=== PATIENT | female | born 1965 | race Hispanic/Latino ===

== ENCOUNTER 2024-11-30 16:45 | Inpatient (IN) | payer SELFPAY ==
[~2024-11-30] VITALS: Ht 152.4 cm; Wt 57.0 kg
[~2024-11-30 16:45] MED LIST: AMLO-257 PO; ASPI-1197 PO; ATOR40TA71 PO; CHOL500062 PO; CLOP-31 PO; FAMO20TA8 PO; FERS325 PO; FOLI0.8C PO; FOLI0.8T22 PO; HYDR50TA37 PO; INSU100I24 SQ; ISOS30TA92 PO; LACT-451 PO; LATA2.5D14 OS; METO-409 PO; PRED5TAB PO; SEVE0.8P PO; TACR1CAP23 PO; TACR5CAP17 PO
--- NOTE | 2024-11-30 17:08 | ERN ---
ED Note History of Present Illness Stated Complaint: dizziness Chief Complaint: Dizzy/Light Headed Time Seen by MD: 16:59 Dictation: PATIENT IS A 59-YEAR-OLD FEMALE COMING IN VIA EMS WITH COMPLAINTS OF HAVING FEELING WEAK WHILE SHE WAS AT HEMODIALYSIS, THE TECH WHO WAS GOING TO PERFORM THE DIALYSIS TOLD HER SHE WAS TOO WEAK TO GO THROUGH DIALYSIS AND CALLED EMS INSTEAD. SHE IS CURRENTLY COMPLAINING OF GENERALIZED HEADACHE HOWEVER NO CHEST PAIN NO BACK PAIN NO SOB. NO FEVER NO CHILLS. PATIENT HAS A LEFT ARM FISTULA WITH GOOD THRILL AND BRUIT PATIENT OF DR. TORREZ. LAST HEMODIALYSIS ONCE TUESDAY. Allergies: Coded Allergies: diphenhydramine (Unverified Allergy, Unknown, 08/19/24) Home Meds Reported Medications Latanoprost (Latanoprost) 0.005 % Drops, 1 DROP OS HS, ML 0 Refills 08/20/24 Tacrolimus (Astagraf Xl) 5 Mg Cap.er.24h, 5 MG PO DAILY, CAPSULE. 08/19/24 Folic Acid/Vitamin B Comp W-C (Michelle-Mack Tablet) 0.8 Mg Tablet, 1 MG PO DAILY, TAB 08/19/24 Ferrous Sulfate (Ferrous Sulfate) 325 Mg (65 Mg Iron) Ectab, 325 MG PO DAILY, TAB.EC 08/19/24 Cholecalciferol (Vitamin D3) (Vitamin D3) 125 Mcg (5000 Unit) Tab.rapdis, 125 MCG PO DAILY, TAB 08/19/24 Famotidine (Famotidine) 20 Mg Tablet, 20 MG PO DAILY, TAB 08/19/24 Hydralazine HCl (Hydralazine HCl) 50 Mg Tablet, 75 MG PO TID, TAB 08/19/24 Folic Acid (Folic Acid) 0.8 Mg Capsule, 1 MG PO DAILY, CAP 08/19/24 Clopidogrel Bisulfate (Plavix) 75 Mg Tablet, 75 MG PO DAILY, TAB 08/19/24 Atorvastatin Calcium (Atorvastatin Calcium) 40 Mg Tablet, 40 MG PO HS, TAB 08/19/24 Insulin Degludec (Tresiba Flextouch U-100) 100 Unit/Ml (3 Ml) Insuln.pen, 55 UNIT SQ HS, SYRINGE 08/19/24 Metoprolol Succinate (Metoprolol Succinate) 100 Mg Tab.er.24h, 100 MG PO DAILY, TAB 08/19/24 Sevelamer Carbonate (Renvela) 0.8 Gram Powd.pack, 0.8 GM PO TIDMEALS 08/19/24 Tacrolimus (Astagraf Xl) 1 Mg Cap.er.24h, 1 CAP PO DAILY for 30 Days, #30 CAP 0 Refills 08/19/24 Prednisone (Prednisone) 5 Mg Tablet, 5 MG PO DAILY, TAB 08/19/24 Amlodipine Besylate (Amlodipine Besylate) 5 Mg Tablet, 5 MG PO DAILY, TAB 08/19/24 Aspirin (Aspirin) 81 Mg Tab.chew, 81 MG PO DAILY, TAB.CHEW 08/19/24 Isosorbide Mononitrate (Isosorbide Mononitrate ER) 30 Mg Tab.er.24h, 30 MG PO DAILY, TAB 08/19/24 Lactulose (Lactulose) 10 Gram/15 Ml (15 Ml) Solution, 15 ML PO DAILY for constipation for 30 Days, #450 ML 0 Refills 08/19/24 Tacrolimus (Astagraf Xl) 1 Mg Cap.er.24h, 1 CAP PO DAILY 08/19/24 Past Medical History Past Medical History: Diabetes-Type II, Hypertension, Liver Disease, Renal Failure Additional Past Medical Hx: RENAL TRANSPLANT, CIRRHOSIS Surgical History: Other Surgical History Other: RENAL TRANSPLANT History: Not Applicable RN Note Reviewed/Agreed w/PFSH: Yes Review of System Dictation CONSTITUTIONAL: NEGATIVE EXCEPT FOR HPI GENERALIZED WEAKNESS HEAD/FACE: NEGATIVE EXCEPT FOR HPI EENT: NEGATIVE EXCEPT FOR HPI RESPIRATORY: NEGATIVE EXCEPT FOR HPI GASTROINTESTINAL/ABDOMINAL: NEGATIVE EXCEPT FOR HPI GENITOURINARY: NEGATIVE EXCEPT FOR HPI MUSCULOSKELETAL: NEGATIVE EXCEPT FOR HPI INTEGUMENTARY: NEGATIVE EXCEPT FOR HPI NEUROLOGICAL/PSYCH: NEGATIVE EXCEPT FOR HPI HEMATOLOGIC/LYMPHATIC: NEGATIVE EXCEPT FOR HPI ALL SYSTEMS NEGATIVE, EXCEPT NOTED ABOVE. 13 POINT REVIEW OF SYSTEMS ASSESSED AND ALL NEGATIVE EXCEPT FOR ABOVE. Initial Vital Sign VS Vital Signs Date Time Temp Pulse Resp B/P (MAP) Pulse Ox O2 Delivery O2 Flow Rate FiO2 11/30/24 17:17 39 16 96/39 92 Room Air 0 11/30/24 18:15 28 11/30/24 18:46 98.4 Physical Exam Dictation VITAL SIGNS REVIEWED GENERAL APPEARANCE: ALERT, ORIENTED X 3, NO ACUTE DISTRESS, WELL DEVELOPED, NOURISHED. HEAD AND FACE: NON-TRAUMATIC. EYES: PERRL, PINK CONJUNCTIVAS, EYELID NO TRAUMA, ANTERIOR CHAMBER WITH ARCUS SENILIS. EARS: PINNAS INTACT AND NO SIGNS OF TRAUMA OR ERYTHEMA EAR CANALS CLEAR AND NO DISCHARGE TM NO ERYTHEMA NOSE: NO DISCHARGE, NO BLEEDING. OROPHARYNX: MOUTH NORMAL, TONGUE PINK, PHARYNX CLEAR,NO ERYTHEMA, TONSILS NO EXUDATES, NO ABSCESSES NOTED, MUCOUS MEMBRANE MOIST NECK: SUPPLE, NON-TENDER, NO THYROMEGALY, NO MASSES, NO JVD, NO BRUITS BREAST:DEFERRED CHEST:NO TENDERNESS, NO CREPITUS, NO PARADOXICAL MOVEMENT, NO RETRACTIONS LUNGS:CLEAR, WELL-VENTILATED, SYMMETRIC, NO RALES, NO WHEEZING, NO RHONCHI, NO STRIDOR, GOOD BREATH SOUNDS BILATERALLY HEART: REGULAR RATE, REGULAR RHYTHM, NO MURMUR, NO GALLOPS VASCULAR: NO PERIPHERAL EDEMA, LEFT ARM FISTULA WITH GOOD THRILL AND BRUIT NOTED ABDOMEN: SOFT, POSITIVE BOWEL SOUNDS, NONDISTENDED, NO GUARDING, NONTENDER, NO REBOUND, NO MASSES NO HEPATOMEGALY, NO SPLENOMEGALY, NO JIMÉNEZ'S SIGN, NO HERNIAS. RECTAL: DEFERRED GENITAL: DEFERRED NEUROLOGICAL: NORMAL SPEECH, MOTOR FUNCTION INTACT, SENSORY FUNCTION INTACT NIH IS 0 MUSCULOSKELETAL: NECK NONTENDER, FULL RANGE OF MOTION, BACK NONTENDER, FULL RANGE OF MOTION, EXTREMITIES: NONTENDER, FULL RANGE OF MOTION SKIN: COLOR PINK, DRY, NO TURGOR, NO RASH, NO LACERATIONS, NO ABRASIONS, NO CONTUSIONS. LYMPHATIC: DEFERRED Results (Laboratory/Radiology) Laboratory/Radiology Laboratory Tests Test 11/30/24 17:14 White Blood Count 4.9 K/uL (4.8-10.8) Red Blood Count 3.30 MIL/uL (4.00-5.50) L Hemoglobin 10.1 g/dL (12.0-16.0) L Hematocrit 34.3 % (36-48) L Mean Corpuscular Volume 103.9 fL (79-99) H Mean Corpuscular Hemoglobin 30.6 pg (27.0-33.0) Mean Corpuscular Hemoglobin Concent 29.4 g/dL (32.0-36.0) L Red Cell Distribution Width 16.6 % (11.0-15.5) H Platelet Count 78 K/uL (130-400) L Mean Platelet Volume 10.2 fL (7.5-10.5) Immature Granulocyte % (Auto) 0.4 % (0-1) Neutrophils (%) (Auto) 49.4 % (40.0-77.0) Lymphocytes (%) (Auto) 25.5 % (21.0-51.0) Monocytes (%) (Auto) 10.3 % (3.0-13.0) Eosinophils (%) (Auto) 13.6 % (0.0-8.0) H Basophils (%) (Auto) 0.8 % (0.0-5.0) Neutrophils # (Auto) 2.4 K/uL (1.8-7.7) Lymphocytes # (Auto) 1.2 K/uL (1.0-4.8) Monocytes # (Auto) 0.5 K/uL (0.1-1.0) Eosinophils # (Auto) 0.66 K/uL (0.00-0.70) Basophils # (Auto) 0.04 K/uL (0.00-0.20) Absolute Immature Granulocyte (auto 0.02 K/uL (0-1) Nucleated Red Blood Cells 0.0 % (0.0-0.19) White Cell Morphology Comment See comments Red Blood Cell Morphology See comments Sodium Level 133 mmol/L (136-145) L Potassium Level 5.1 mmol/L (3.5-5.1) Chloride Level 98 mmol/L (101-111) L Carbon Dioxide Level 28 mmol/L (21-32) Blood Urea Nitrogen 51 mg/dL (7-18) H Creatinine 4.3 mg/dL (0.5-1.0) H Glomerular Filtration Rate Calc 11 mL/min (>90) Random Glucose 133 mg/dL (70-105) H Total Calcium 9.1 mg/dL (8.5-10.1) Troponin I High Sensitivity 31 ng/L (4-50) REASON: BREATH/CHEST PAIN ORDERING PHYSICIAN: ARNULFO WALDEN NP PROCEDURE: CXR1VW - CHEST 1VW PORTABLE CHEST RADIOGRAPH INDICATION: BREATH/CHEST PAIN COMPARISON: 08/19/2024 FINDINGS: panel monitor leads overlie the field of view. Mild calcific plaque is present along the aortic arch patel. Heart is enlarged. Coronary arterial wall calcific plaque. The pulmonary vascularity and marichuy appear normal. No abnormal pulmonary parenchymal opacity or consolidation identified. No significant pleural effusion noted. No pneumothorax detected. IMPRESSION: Stable cardiomegaly without radiographic evidence for any acute cardiopulmonary process. Labs Reviewed?: Yes EKG Comment: EKG SINUS BRADYCARDIA/HEART RATE 45/AXIS NORMAL/T-WAVE INVERSION IN LEADS V4 FIVE AND SIX. ED Course ED Course Orders Procedure Category Date Status Time Cbc With Differential LAB 11/30/24 Complete 17:05 Troponin I High LAB 11/30/24 Complete Sensitivity 17:05 12 Lead Ekg Tracing- EKG 11/30/24 Logged Technical 17:05 Chest 1vw RAD 11/30/24 Resulted 17:05 Basic Metabolic Panel LAB 11/30/24 Complete 17:05 Acetaminophen 500mg PHA 11/30/24 Complete Tab (Tylenol 500mg T 18:00 Atropine 1mg Syg PHA 11/30/24 Complete (Atropine 1mg Syg) 18:26 Atropine 1mg Syg PHA 11/30/24 Complete (Atropine 1mg Syg) 18:28 Atropine 1mg Syg PHA 11/30/24 Complete (Atropine 1mg Syg) 18:30 Dopamine Hcl 400 PHA 11/30/24 Complete Mg/D5%-Water (Intropin 18:30 Cardiology Consult CONPHYSVC 11/30/24 Transmitted 18:43 Atropine 1mg Syg PHA 11/30/24 Complete (Atropine 1mg Syg) 19:00 Critcal Care Consult CONPHYS 11/30/24 Transmitted 19:37 Vital Signs(Adult CPOE 11/30/24 Transmitted Hospitalist) 19:39 Oxygen By Nc/Pulse Ox CPOE 11/30/24 Transmitted 19:39 Daily Weights CPOE 11/30/24 Transmitted 19:39 I&O Q Shift CPOE 11/30/24 Transmitted 19:39 Acetaminophen 325 Tab PHA 11/30/24 In Process (Tylenol 325mg Tab 20:00 Acetaminophen 325 Tab PHA 11/30/24 In Process (Tylenol 325mg Tab 20:00 Ondansetron 4mg Inj PHA 11/30/24 In Process (Zofran 4mg Inj) 20:00 Ipratropium/Albuterol PHA 11/30/24 In Process Neb (Duoneb) 22:00 Pulse Ox(Continuous) RT 11/30/24 Transmitted 19:39 Nurse To Enter Home CPOE 11/30/24 Transmitted Medication 19:39 Admit Orders ADM 11/30/24 Transmitted 19:39 Condition: CPOE 11/30/24 Transmitted 19:39 Telemetry Monitoring CPOE 11/30/24 Transmitted 19:39 Activity: Bed Rest CPOE 11/30/24 Transmitted 19:39 Renal Dialysis Diet DIET 12/01/24 Transmitted Breakfast Apply Scds CPOE 11/30/24 Transmitted 19:39 Famotidine 20mg Tab PHA 11/30/24 In Process (Pepcid 20mg Tab) 20:00 Critcal Care Consult CONPHYSVC 11/30/24 Transmitted 19:39 Cardiology Consult CONPHYSVC 11/30/24 Transmitted 19:39 Cbc With Differential LAB 12/01/24 Verified 04:00 Comprehensive LAB 12/01/24 Verified Metabolic Panel 04:00 Magnesium LAB 12/01/24 Verified 04:00 Pt And Ptt LAB 12/01/24 Verified 04:00 Thyroid Stimulating LAB 12/01/24 Verified Hormone 04:00 Initiate RONAK 11/30/24 In Process Hyperglycemia Protoco 19:39 Insulin Regular, PHA 11/30/24 In Process Human 3ml (Humulin R 21:00 Initiate Hypoglycemia RONAK 11/30/24 In Process Protocol 19:39 Dextrose 50%-Water PHA 11/30/24 In Process (D50w) 20:00 Glucagon 1mg Kit PHA 11/30/24 In Process (Glucagon 1mg Kit) 20:00 Nephrology Consult CONPHYSVC 11/30/24 Transmitted 20:37 Vital Signs Date Time Temp Pulse Resp B/P (MAP) Pulse Ox O2 Delivery O2 Flow Rate FiO2 11/30/24 20:04 52 20 141/43 97 Nasal Cannula* 2 28 11/30/24 19:15 78 20 184/75 97 Nasal Cannula* 2 11/30/24 19:09 100/44 11/30/24 18:46 98.4 47 47 121/47 100 Nasal Cannula* 2 28 11/30/24 18:15 33 20 91/34 98 Nasal Cannula* 2 28 11/30/24 17:17 39 16 96/39 92 Room Air 0 1800/ELECTROLYTES ARE UNREMARKABLE WITH POTASSIUM IS CONTROLLED PATIENT IS HEMODYNAMICALLY STABLE NO CHEST PAIN NO BACK PAIN NO SOB CHEST X-RAY IS CLEAR FOLLOW UP WITH NEPHROLOGISTS FOR PATIENT TO HAVE OUTPATIENT DIALYSIS TOMORROW. 1830/PATIENT IS A SINUS BRADYCARDIA HEART RATE 29TH OF 35 MINUTE. PATIENT IS BORDERLINE HYPOTENSIVE WE WILL FOLLOW UP WITH ATROPINE, AND INITIATE DOPAMINE DRIP FOR BLOOD PRESSURE AND HEART RATE. CONSULT CARDIOLOGY AND HAVE PATIENT ADMITTED TO THE HOSPITAL AND [id number]/ 183/HEART RATE NOW 51-50 TO A MIN SYSTOLIC BP 1 20S. PATIENT MORE ALERT. WE WILL FOLLOW UP WITH HER ADVERTISING ACCOUNT REPRESENTATIVE, FOR CONSULTATION AND HAVE PLACED IN ADMITTED TO ICU. 1839/SPOKE WITH REVIEWED EKG LABS AND PATIENT'S MEDICATIONS HE AGREED TO ADMIT PATIENT AND WOULD SEE HER IN THE HOSPITAL. 1931/SPOKE WITH CHANTEL JEFFRIES FOR [facility] AND CRITICAL CARE GROUP. REVIEWED LABS EKG AND INTERVENTIONS TO INCLUDE ATROPINE AND DOPAMINE. HE AGREED TO HAVE [facility] CONSULTED FOR CRITICAL CARE MANAGEMENT PATIENT WILL BE ADMITTED TO THE HOSPITALIST GROUP. 2104/SPOKE WITH [facility] HOSPITALIST AND SHE AGREED TO ADMIT PATIENT Medical Decision Making MDM MDM: DIFFERENTIAL DIAGNOSIS: SYMPTOMATIC BRADYCARDIA/ELECTROLYTE IMBALANCE/DEHYDRATION/ACS RATIONALE: TESTS CONSIDERED AND ORDERED SECONDARY TO SHARED DECISION MAKING INCLUDE: LABS, ECG AND RADIOLOGY PREVIOUS OUTSIDE RECORDS REVIEWED: OLD ER VISITS. RISK OF COMPLICATION AND/OR MORBIDITY OR MORTALITY OF PATIENT MANAGEMENT: NONE MEDICATIONS-PER MEDICATION RECONCILIATION NEED FOR HOSPITALIZATION: PATIENT DOES MEET CRITERIA FOR HOSPITALIZATION. PATIENT WILL BE ADMITTED TO ICU WITH DOPAMINE, WE WILL NEED PROBABLE PACEMAKER AND CARDIOLOGY CONSULTATION. NEED FOR EMERGENCY MAJOR/MINOR SURGERY: PROBABLE PACEMAKER THERE ARE NO SOCIAL CONCERNS WITH THIS PATIENT. PRESCRIPTION DRUG MANAGEMENT PRESCRIPTIONS WILL INCLUDE SYMPTOMATIC CARE PATIENT'S PRIOR EXTERNAL MEDICAL RECORDS FROM OTHER ER VISITS WERE REVIEWED BY ME INDICATED. PRIOR TESTING AND RESULTS FROM PREVIOUS VISITS WERE REVIEWED. PRIOR TESTS WERE TAKEN INTO ACCOUNT WITH MEDICAL DECISION MAKING AND RESOURCE UTILIZATION, INDEPENDENT HISTORIAN/HISTORIANS WERE USED TO OBTAIN COMPLETE MEDICAL HISTORY. I INDEPENDENTLY INTERPRETED THE TEST THAT WERE PERFORMED, RESULTS WERE REVIEWED BY ME AND CONSIDERED FINDINGS ON RADIOLOGY IF ORDERED. MEDICAL MANAGEMENT AND EXAMINATION INTERPRETATION DISCUSSIONS WERE HAD BY ME WITH OTHER QUALIFIED HEALTHCARE PROFESSIONALS INDICATED FOR THE PATIENT'S CARE. DX & DISP Disposition: Inpatient Decision to Admit Time: 18:38 Departure Impression: Primary Impression: Symptomatic bradycardia Additional Impressions: Hypotension, Hyponatremia, Anemia of chronic kidney failure Condition: Stable Referrals: MIROSLAVA TORREZ (PCP) Time of Disposition: 19:40 I have reviewed the case, and I agree with, Diagnosis and Plan ARNULFO WALDEN LEAD RIDER Nov 30, 2024 17:08
[2024-11-30 17:20] LABS: BASOPHILS # (AUTO) 0.04 K/uL (0.00-0.20); BASOPHILS % (AUTO) 0.8 % (0.0-5.0); EOSINOPHILS # (AUTO) 0.66 K/uL (0.00-0.70); EOSINOPHILS % (AUTO) 13.6 % (0.0-8.0); HEMATOCRIT 34.3 % (36-48); IMMATURE GRANULOCYTE ABSOLUTE 0.02 K/uL (0-1); LYMPHOCYTES # (AUTO) 1.2 K/uL (1.0-4.8); LYMPHOCYTES % (AUTO) 25.5 % (21.0-51.0); MEAN CORPUSCULAR HEMOGLOBIN 30.6 pg (27.0-33.0); MEAN CORPUSCULAR HGB CONC 29.4 g/dL (32.0-36.0); MEAN CORPUSCULAR VOLUME 103.9 fL (79-99); MONOCYTES # (AUTO) 0.5 K/uL (0.1-1.0); MONOCYTES % (AUTO) 10.3 % (3.0-13.0); NEUTROPHILS # (AUTO) 2.4 K/uL (1.8-7.7); NEUTROPHILS % (AUTO) 49.4 % (40.0-77.0); PLATELET COUNT (AUTO) 78 K/uL (130-400); RED CELL DISTRIBUTION WIDTH 16.6 % (11.0-15.5); WHITE BLOOD COUNT (AUTO) 4.9 K/uL (4.8-10.8)
--- NOTE | 2024-11-30 17:20 | NUR ---
DIALYSIS PT AND GETS DIALYSIS MWF. UNABLE TO GET DIALYSIS TODAY DUE TO FEELING WEAK. PT WAS PICKED UP AT DIALYSIS CENTER BY EMS AND EMS REPORTS THEY WERE CALLED OUT FOR PT C/O GENERAL MALAISE AND BRADYCARDIA.
[2024-11-30 17:30] LABS: CREATININE 4.3 mg/dL (0.5-1.0); POTASSIUM 5.1 mmol/L (3.5-5.1)
--- NOTE | 2024-11-30 17:45 | HMCIMG ---
PORTABLE CHEST RADIOGRAPH INDICATION: BREATH/CHEST PAIN COMPARISON: 08/19/2024 FINDINGS: cafeteria monitor leads overlie the field of view. Mild calcific plaque is present along the aortic arch patel. Heart is enlarged. Coronary arterial wall calcific plaque. The pulmonary vascularity and marichuy appear normal. No abnormal pulmonary parenchymal opacity or consolidation identified. No significant pleural effusion noted. No pneumothorax detected. IMPRESSION: Stable cardiomegaly without radiographic evidence for any acute cardiopulmonary process.
--- NOTE | 2024-11-30 18:25 | NUR ---
ATROPINE 1MG ADM VIA IV RT WRIST
[2024-11-30] MEDS ORDERED: ATROPINE 1MG SYG IVP SCH (18:30)
[2024-11-30] MEDS: ATROPINE 1MG SYG IVP ONE ×3 (19:07→19:08)
[2024-11-30] MEDS: DOPamine HCL 400 MG/D5%-WATER 250 ML IV STA (19:09)
[2024-11-30] MEDS: acetaMINOPHEN 500 MG TABLET PO ONE (19:35)
--- NOTE | 2024-11-30 19:38 | HP ---
[facility] HISTORY AND PHYSICAL Date of Service: Nov 30, 2024 Time of Service: 19:38 PCP: Lilly Jorgensen HISTORY OF PRESENT ILLNESS: This is a 59 year old female Syriac speaking with past medical history of Hypertension, hyperlipidemia, end-stage renal disease on hemodialysis MWF , liver cirrhosis, renal transplant which has failed, diabetic retinopathy with loss of vision of the right eye, coronary artery disease who was brought by EMS to the ED from hemodialysis center for complaints of feeling weak and low BP a nd her HR was in the 30's ,thus prompted this admission.Patient states she was not hemodialyzed today for above reasons.Patient states she is taking Metoprolol 100mg po daily and last dose taken was yesterday night.Patient states she has been weak and feeling tired for the past few days and her BP has been low for the pas 1 week she said patient reports her librarian assistant was . Seen and examined patient in the ED awake,alert and coherent.Patient appears comfortable.Patient denies fever,chills,nausea,vomiting,headache ,chest pain and palpitation.Patient reports feeling dizzy and mild shortness of breaths. Latest vital signs temperature 98.4, heart rate 52, respiration 20, blood pressure 141/43 saturation 97% on 2 L nasal cannula. Labs: Hemoglobin 10, hematocrit 34, platelet count 78 . Sodium 133, chloride 98, BUN 51, creatinine 4.3, GFR 11 glucose 133, troponin 31. ECG result revealed sinus bradycardia heart rate 45 with nonspecific T abnormalities diffuse leads. Chest x-ray result revealed stable cardiomegaly without radiographic evidence for any acute cardiopulmonary process. While in the ER patient received atropine 1 mg IV, patient started on dopamine, acetaminophen 1000 mg p.o. as per ER MDDr. Grande librarian assistant was consulted. We will admit patient for further medical management. REVIEW OF SYSTEMS CONSTITUTIONAL: Denies fevers, chills, or night sweats. No unintentional weight loss reported. NEUROLOGICAL: Complain of generalized body weakness, dizziness Denies headache, amaurosis fugax, sensory deficit, gait abnormalities, or tremors. ENT: No hearing loss, otalgia, otorrhea, rhinitis, rhinorrhea, hoarseness, or sore throat. CARDIOVASCULAR: Denies any exertional angina, dyspnea on exertion, orthopnea, paroxysmal nocturnal dyspnea, palpitations, life-threatening arrhythmias, claudication. PULMONARY: Complain of mild shortness of breaths Denies cough, phlegm/sputum, hemoptysis, pleuritic chest pain. SLEEP: Denies morning headaches, daytime somnolence or napping. Denies difficulty falling asleep, staying asleep, waking from sleep. Denies knowledge of snoring. GASTROINTESTINAL: Denies any type of dysphagia to either liquids or solids. Denies nausea, vomiting, pyrosis, early satiety, abdominal pain, diarrhea, constipation, or changes in stool consistency or caliber. Denies coffee-ground emesis, hematemesis, hematochezia, or melanotic stools. GENITOURINARY: Denies frequency, urgency, nocturia, hematuria or incontinence (Storage/Irritative symptoms.) Low urinary stream, straining to void, urinary intermittency or hesitancy, splitting of the voiding stream, terminal dribbling. ENDOCRINOLOGIC: Denies polyuria, polydipsia, polyphagia or heat/cold intolerances. HEMATOLOGIC: Denies thrombophilia/previous clots, or coagulopathy/bleeding disorders. ONCOLOGIC: Denies personal history of malignancy. DERMATOLOGIC: Denies rashes or pruritus. PSYCHIATRIC: Denies any suicidal or homicidal ideation. Denies hallucinations. PAST MEDICAL HISTORY: [ Hypertension, hyperlipidemia, end-stage renal disease on hemodialysis, liver cirrhosis, renal transplant which has failed, diabetic retinopathy with loss of vision of the right eye, coronary artery disease ] PAST SURGICAL HISTORY: [Lava, cholecystectomy, renal transplantation ] PAST SOCIAL HISTORY: [ Day when you come patient lives alone. Patient denies alcohol tobacco and recreational drug use] FAMILY HISTORY: [Hypertension and diabetes ] Coded Allergies: diphenhydramine (Unverified Allergy, Unknown, 08/19/24) PHYSICAL EXAM GENERAL APPEARANCE: The patient is awake, alert, and oriented, in no acute cardiopulmonary distress. NEUROLOGICAL: Cranial nerves II-XII grossly intact. Motor is 5/5 in bilateral upper and lower extremities proximal to distal. No sensory deficits. HEENT: Face is symmetric. Pupils are equal and reactive. Extraocular movements are intact. NECK: Supple. No JVD. No thyromegaly. No submental, submandibular, pre- /postauricular, occipital or supraclavicular lymphadenopathy. CHEST: Normal chest expansion. + Telemetry. LUNGS: Absence of any rales, rhonchi or any wheezing. CARDIOVASCULAR: Bradycardic Regular. S1 and S2 normal. No appreciable rubs, murmurs or gallops. ABDOMEN: Soft, nontender, and nondistended. There is no rebound, voluntary guarding, or rigidity. : Deferred. No Prieto. EXTREMITIES: Non-edematous and not cyanotic. No clubbing. Good capillary refill. SKIN: No skin breakdown. Vital Sign (Last 24 Hours) 11/30/24 11/30/24 18:46 19:09 Temp 98.4 Pulse 47 Resp 47 B/P (MAP) 100/44 Pulse Ox 100 O2 Delivery Nasal Cannula* O2 Flow Rate 2 FiO2 28 LABS: Laboratory: Test 11/30/24 17:14 Range/Units White Blood Count 4.9 4.8-10.8 K/uL Red Blood Count 3.30 L 4.00-5.50 MIL/uL Hemoglobin 10.1 L 12.0-16.0 g/dL Hematocrit 34.3 L 36-48 % Mean Corpuscular Volume 103.9 H 79-99 fL Mean Corpuscular Hemoglobin 30.6 27.0-33.0 pg Mean Corpuscular Hemoglobin Concent 29.4 L 32.0-36.0 g/dL Red Cell Distribution Width 16.6 H 11.0-15.5 % Platelet Count 78 L 130-400 K/uL Mean Platelet Volume 10.2 7.5-10.5 fL Immature Granulocyte % (Auto) 0.4 0-1 % Neutrophils (%) (Auto) 49.4 40.0-77.0 % Lymphocytes (%) (Auto) 25.5 21.0-51.0 % Monocytes (%) (Auto) 10.3 3.0-13.0 % Eosinophils (%) (Auto) 13.6 H 0.0-8.0 % Basophils (%) (Auto) 0.8 0.0-5.0 % Neutrophils # (Auto) 2.4 1.8-7.7 K/uL Lymphocytes # (Auto) 1.2 1.0-4.8 K/uL Monocytes # (Auto) 0.5 0.1-1.0 K/uL Eosinophils # (Auto) 0.66 0.00-0.70 K/uL Basophils # (Auto) 0.04 0.00-0.20 K/uL Absolute Immature Granulocyte (auto 0.02 0-1 K/uL Nucleated Red Blood Cells 0.0 0.0-0.19 % White Cell Morphology Comment See comments Red Blood Cell Morphology See comments Sodium Level 133 L 136-145 mmol/L Potassium Level 5.1 3.5-5.1 mmol/L Chloride Level 98 L 101-111 mmol/L Carbon Dioxide Level 28 21-32 mmol/L Blood Urea Nitrogen 51 H 7-18 mg/dL Creatinine 4.3 H 0.5-1.0 mg/dL Glomerular Filtration Rate Calc 11 >90 mL/min Random Glucose 133 H 70-105 mg/dL Total Calcium 9.1 8.5-10.1 mg/dL Troponin I High Sensitivity 31 4-50 ng/L Current Medications Medications (Trade) Dose Ordered Sig/Zay Route PRN Reason Start Time Stop Time Status Last Admin Dose Admin Atropine Sulfate (Atropine 1mg Syg) 1 mg ONCE IVP 11/30/24 18:30 11/30/24 18:32 DC Dopamine HCl/ Dextrose 250 ml @ 0 mls/hr PROTOCOL STAT IV 11/30/24 18:30 11/30/24 18:35 DC 11/30/24 19:09 13 MLS/HR DIAGNOSTICS / RADIOLOGY: [ ] ASSESSMENT: Symptomatic bradycardia POA Acute respiratory failure with out mechanical ventilation POA Acute anemia POA Acute thrombocytopenia POA Acute on chronic renal failure on hemodialysis POA Diabetes POA Hyperlipidemia POA Hypertension POA PLAN: We will admit patient in ICU We will start on renal dialysis diet We will continue dopamine drip We will start on Famotidine 20 mg p.o. q.48h for GI prophylaxis We will start on insulin sliding scale AC & HS with hypoglycemia protocol We will add prn medication for fever,pain,cough and nausea We will reconcile home meds once medlist available We will request labs in am We will seek critical care consultation We will seek Nephrology consultation Cardiology consulted per ER and follow recommendation Further orders to follow depending on above results Case discussed with attending physician and came up with above treatment and plan of care. ADVANCED CARE PLANNING 1. Which of the following were discussed? Hospice Care - No Therapeutic options - Yes Advance Directives - No Other discussions - 2. Discussed with who? Patient and sister Terrie Brown 3. Voluntary nature of this service was explained to the patient? Yes 4. Amount of time spent - ___28 min____ 5. Reviewed by Physician? (if this service was performed by NPP) Yes Patient seen and examined by me. Agree with note by MATERNAL CHILD NURSE SEE ADDITIONAL ORDERS PER CHART DISCUSSED WITH NURSING STAFF KOFFI GOZNALEZ [employer] SUPERINTENDENT Nov 30, 2024 19:38
[2024-11-30] MEDS: FAMOTIDINE 20MG TAB PO SCH (19:57)
[2024-11-30] MEDS ORDERED: GLUCAGON 1MG KIT 1 MG ML IM PRN (20:00)
[2024-11-30] MEDS ORDERED: ondanSETRON 4MG INJ IV PRN (20:00)
[2024-11-30] MEDS: INSULIN humuLIN R 100 UNIT/ML 3ML SQ SCH (21:00)
[2024-11-30 21:17] VITALS: PULSE 46; RESP 18; O2SAT 92
[2024-11-30 21:18] VITALS: PULSE 48; RESP 20
[2024-11-30] MEDS: IpraTROPium/alBUTERol SULFATE 3 ML SOLUTION IH SCH (21:18)
[2024-12-01] VITALS (53 sets, daily range): BP systolic 135–180; BP diastolic 48–128; PULSE 53–107; RESP 13–53; TEMP 96.5–98.9; O2SAT 96–99
--- NOTE | 2024-12-01 00:51 | CONS ---
[facility] CONSULTATION NOTE Date Patient Seen: Nov 30, 2024 Time of Visit: 2100 Supervising Physician: [Dr. Stanley Farrell ] Reason for Consultation: Critical care management ] Primary Care Physician: [ Dr. Jameel Carr] Outpatient Specialists: [Dr. Singhnephkris, Dr. Hopper-cardiology] Inpatient Consults: [ Dr. Roach, Dr. Grande-cardiology] PROBLEM LIST: Severe symptomatic bradycardia requiring Dopamine drip-POA Symptomatic hypotension-POA Missed dialysis due to symptomatic hypotension-POA ESRD-HD MWF Primary HTN Prior renal transplant with failure Anemia of chronic disease Thrombocytopenia Liver cirrhosis PLAN: -Continue critical care management -Continue Dopamine drip titrate as per protocol -Obtain 2d-echo in am -Cardiology, Dr. Grande consulted by ED PA -Consult Dr. Siu for HD management -Daily weight -Strict I&O -The rest of medical management per primary team HPI: [Per Hospitalist notes: "This is a 59 year old female Slovak speaking with past medical history of Hypertension, hyperlipidemia, end-stage renal disease on hemodialysis MWF , liver cirrhosis, renal transplant which has failed, diabetic retinopathy with loss of vision of the right eye, coronary artery disease who was brought by EMS to the ED from hemodialysis center for complaints of feeling weak and low BP a nd her HR was in the 30's ,thus prompted this admission.Patient states she was not hemodialyzed today for above reasons.Patient states she is taking Metoprolol 100mg po daily and last dose taken was yesterday night.Patient states she has been weak and feeling tired for the past few days and her BP has been low for the pas 1 week she said patient reports her front desk administrator was . Seen and examined patient in the ED awake,alert and coherent.Patient appears comfortable.Patient denies fever,chills,nausea,vomiting,headache ,chest pain and palpitation.Patient reports feeling dizzy and mild shortness of breaths. Latest vital signs temperature 98.4, heart rate 52, respiration 20, blood pressure 141/43 saturation 97% on 2 L nasal cannula. Labs: Hemoglobin 10, hematocrit 34, platelet count 78 . Sodium 133, chloride 98, BUN 51, creatinine 4.3, GFR 11 glucose 133, troponin 31. ECG result revealed sinus bradycardia heart rate 45 with nonspecific T abnormalities diffuse leads. Chest x-ray result revealed stable cardiomegaly without radiographic evidence for any acute cardiopulmonary process. While in the ER patient received atropine 1 mg IV, patient started on dopamine, acetaminophen 1000 mg p.o. as per ER MD, Dr. Grande front desk administrator was consulted. We will admit patient for further medical management." [facility] team was consulted for ICU management in the setting of Dopamine drip. Physical assessment was unrevealing without focal neurologic deficits. She complains of headache. Bedside RN Gurinder served as solar system designer, apparently patient has been having low BP for the past 2 weeks, she had stopped taking all her BP meds. She was not able to accompalish her dialysis today due to hypotension. SHe is currently receiving Dopamine drip and RN claims she was having challenges titrating due to BP would suddenly shoot-up and patient complaining of a headache. She is currently at 2 mcg/kg/min. ] PAST MEDICAL HX: see above PAST SURGICAL HX: noncontributory SOCIAL HISTORY: No tobacco, ETOH, or illicit drug use Coded Allergies: diphenhydramine (Unverified Allergy, Unknown, 08/19/24) REVIEW OF SYSTEMS: 12 point ROS reviewed with patient. Pertinent positives mentioned above. Otherwise negative. PHYSICAL EXAM: GENERAL: alert, weak, awake oriented x 3 HEENT: EOMI, Sclera non icteric, moist mucosa NECK: Supple, no JVD, trachea midline LUNGS: Clear breath sounds bilaterally. No wheezes HEART: Regular rate and rhythm. Normal S1 and S2, without murmurs ABD: Abdomen soft, nontender. Bowel sounds present EXT: No clubbing cyanosis or edema, LAVA (+) thrill and bruit NEURO: Alert and oriented to person, follows commands Vital Signs (last 8hr) Date Time Temp Pulse Resp B/P (MAP) Pulse Ox O2 Delivery O2 Flow Rate FiO2 11/30/24 22:51 49 20 155/58 99 Nasal Cannula* 2 28 11/30/24 21:41 130/71 11/30/24 21:34 48 20 119/54 97 Nasal Cannula* 2 11/30/24 21:17 46 18 N/Cannula Low lpm 2.0 11/30/24 20:04 52 20 141/43 97 Nasal Cannula* 2 28 11/30/24 19:15 78 20 184/75 97 Nasal Cannula* 2 28 11/30/24 19:09 100/44 11/30/24 18:46 98.4 47 47 121/47 100 Nasal Cannula* 2 28 11/30/24 18:15 33 20 91/34 98 Nasal Cannula* 2 28 11/30/24 17:17 39 16 96/39 92 Room Air 0 LABS: Hematology Labs: Test 11/30/24 17:14 Range/Units White Blood Count 4.9 4.8-10.8 K/uL Red Blood Count 3.30 L 4.00-5.50 MIL/uL Hemoglobin 10.1 L 12.0-16.0 g/dL Hematocrit 34.3 L 36-48 % Mean Corpuscular Volume 103.9 H 79-99 fL Mean Corpuscular Hemoglobin 30.6 27.0-33.0 pg Mean Corpuscular Hemoglobin Concent 29.4 L 32.0-36.0 g/dL Red Cell Distribution Width 16.6 H 11.0-15.5 % Platelet Count 78 L 130-400 K/uL Mean Platelet Volume 10.2 7.5-10.5 fL Immature Granulocyte % (Auto) 0.4 0-1 % Neutrophils (%) (Auto) 49.4 40.0-77.0 % Lymphocytes (%) (Auto) 25.5 21.0-51.0 % Monocytes (%) (Auto) 10.3 3.0-13.0 % Eosinophils (%) (Auto) 13.6 H 0.0-8.0 % Basophils (%) (Auto) 0.8 0.0-5.0 % Neutrophils # (Auto) 2.4 1.8-7.7 K/uL Lymphocytes # (Auto) 1.2 1.0-4.8 K/uL Monocytes # (Auto) 0.5 0.1-1.0 K/uL Eosinophils # (Auto) 0.66 0.00-0.70 K/uL Basophils # (Auto) 0.04 0.00-0.20 K/uL Absolute Immature Granulocyte (auto 0.02 0-1 K/uL Nucleated Red Blood Cells 0.0 0.0-0.19 % White Cell Morphology Comment See comments Red Blood Cell Morphology See comments Chemistry Labs: Test 11/30/24 21:36 11/30/24 17:14 Range/Units Whole Blood Glucose 136 H 70-110 MG/DL Sodium Level 133 L 136-145 mmol/L Potassium Level 5.1 3.5-5.1 mmol/L Chloride Level 98 L 101-111 mmol/L Carbon Dioxide Level 28 21-32 mmol/L Blood Urea Nitrogen 51 H 7-18 mg/dL Creatinine 4.3 H 0.5-1.0 mg/dL Glomerular Filtration Rate Calc 11 >90 mL/min Random Glucose 133 H 70-105 mg/dL Total Calcium 9.1 8.5-10.1 mg/dL Troponin I High Sensitivity 31 4-50 ng/L DIAGNOSTICS / RADIOLOGY RESULTS: [ ] PLAN NEURO: Minimize central acting medications as possible. Maintain fall precautions, adequate lighting during the day PULMONARY: Supplemental 02 as needed. Maintain aspiration precautions at all times CARDIOVASCULAR: Follow hemodynamics. Vital signs per facility protocol GI & NUTRITION: Continue with nutritional support. Continue stool softeners and laxatives as needed. KIDNEYS & ELECTROLYTES: Strict monitoring of intake, output and overall fluid balance. Avoid nephrotoxic medications to the extent possible. Medications to be dosed according to renal function. Monitor electrolytes and replace as needed ENDOCRINE: Maintain blood glucose between 100-180 at all times. Hypoglycemia protocol in place INFECTIOUS DISEASE: Trend temperature, WBC and procalcitonin level Follow cultures, deescalate antibiotics as soon as possible. Panculture if new onset fever ONCOLOGY/HEMATOLOGY/COAGULATION: Monitor for s/s of bleeding Monitor hemoglobin, coagulation studies as needed SKIN: Pressure ulcer prevention per facility protocol Specialty mattress ORTHO/REHAB: Continue PT/OT Prophylaxis: Continue GI and DVT prophylaxis Code Status: Full Resuscitation Disposition: TBD Other: Total patient care time: 35 minutes CHANTEL CYR Dec 01, 2024 00:51
--- NOTE | 2024-12-01 06:34 | PN ---
[facility] PROGRESS NOTE Date of Service: Dec 01, 2024 Time of Service: 06:32 SUBJECTIVE: [ ] This is a 59 year old female Romanian speaking with past medical history of Hypertension, hyperlipidemia, end-stage renal disease on hemodialysis MWF , liver cirrhosis, renal transplant which has failed, diabetic retinopathy with loss of vision of the right eye, coronary artery disease who was brought by EMS to the ED from hemodialysis center for complaints of feeling weak and low BP a nd her HR was in the 30's ,thus prompted this admission.Patient states she was not hemodialyzed today for above reasons.Patient states she is taking Metoprolol 100mg po daily and last dose taken was yesterday night.Patient states she has been weak and feeling tired for the past few days and her BP has been low for the pas 1 week she said patient reports her account support rep was . 12/01/24 patient was seen in ICU was evaluated by account support rep's reviewed note in detail bradycardia resolved started patient on low dose metoprolol with para meters. Patient denied chest pain or shortness for breath. REVIEW OF SYSTEMS CONSTITUTIONAL: Denies fevers, chills, or night sweats. No unintentional weight loss reported. NEUROLOGICAL: Complain of generalized body weakness, dizziness Denies headache, amaurosis fugax, sensory deficit, gait abnormalities, or tremors. ENT: No hearing loss, otalgia, otorrhea, rhinitis, rhinorrhea, hoarseness, or sore throat. CARDIOVASCULAR: Denies any exertional angina, dyspnea on exertion, orthopnea, paroxysmal nocturnal dyspnea, palpitations, life-threatening arrhythmias, claudication. PULMONARY: Complain of mild shortness of breaths Denies cough, phlegm/sputum, hemoptysis, pleuritic chest pain. SLEEP: Denies morning headaches, daytime somnolence or napping. Denies difficulty falling asleep, staying asleep, waking from sleep. Denies knowledge of snoring. GASTROINTESTINAL: Denies any type of dysphagia to either liquids or solids. Denies nausea, vomiting, pyrosis, early satiety, abdominal pain, diarrhea, constipation, or changes in stool consistency or caliber. Denies coffee-ground emesis, hematemesis, hematochezia, or melanotic stools. GENITOURINARY: Denies frequency, urgency, nocturia, hematuria or incontinence (Storage/Irritative symptoms.) Low urinary stream, straining to void, urinary intermittency or hesitancy, splitting of the voiding stream, terminal dribbling. ENDOCRINOLOGIC: Denies polyuria, polydipsia, polyphagia or heat/cold intolerances. HEMATOLOGIC: Denies thrombophilia/previous clots, or coagulopathy/bleeding disorders. ONCOLOGIC: Denies personal history of malignancy. DERMATOLOGIC: Denies rashes or pruritus. PSYCHIATRIC: Denies any suicidal or homicidal ideation. Denies hallucinations. PHYSICAL EXAM GENERAL APPEARANCE: The patient is awake, alert, and oriented, in no acute cardiopulmonary distress. NEUROLOGICAL: Cranial nerves II-XII grossly intact. Motor is 5/5 in bilateral upper and lower extremities proximal to distal. No sensory deficits. HEENT: Face is symmetric. Pupils are equal and reactive. Extraocular movements are intact. NECK: Supple. No JVD. No thyromegaly. No submental, submandibular, pre- /postauricular, occipital or supraclavicular lymphadenopathy. CHEST: Normal chest expansion. + Telemetry. LUNGS: Absence of any rales, rhonchi or any wheezing. CARDIOVASCULAR: Bradycardic Regular. S1 and S2 normal. No appreciable rubs, murmurs or gallops. ABDOMEN: Soft, nontender, and nondistended. There is no rebound, voluntary gua rding, or rigidity. : Deferred. No Prieto. EXTREMITIES: Non-edematous and not cyanotic. No clubbing. Good capillary refill. SKIN: No skin breakdown. Vital Signs (last 8hr) Date Time Temp Pulse Resp B/P (MAP) Pulse Ox O2 Delivery O2 Flow Rate FiO2 12/01/24 06:27 57 18 169/65 98 Nasal Cannula* 2 12/01/24 04:31 62 18 159/53 98 Nasal Cannula* 2 28 12/01/24 03:25 65 18 164/67 98 Nasal Cannula* 2 12/01/24 02:10 54 18 168/53 98 Nasal Cannula* 2 12/01/24 01:53 53 20 12/01/24 01:20 62 20 164/78 99 Nasal Cannula* 2 11/30/24 23:54 55 20 152/57 99 Nasal Cannula* 2 11/30/24 22:51 49 20 155/58 99 Nasal Cannula* 2 LABS: Laboratory: Test 11/30/24 21:36 11/30/24 17:14 Range/Units Whole Blood Glucose 136 H 70-110 MG/DL White Blood Count 4.9 4.8-10.8 K/uL Red Blood Count 3.30 L 4.00-5.50 MIL/uL Hemoglobin 10.1 L 12.0-16.0 g/dL Hematocrit 34.3 L 36-48 % Mean Corpuscular Volume 103.9 H 79-99 fL Mean Corpuscular Hemoglobin 30.6 27.0-33.0 pg Mean Corpuscular Hemoglobin Concent 29.4 L 32.0-36.0 g/dL Red Cell Distribution Width 16.6 H 11.0-15.5 % Platelet Count 78 L 130-400 K/uL Mean Platelet Volume 10.2 7.5-10.5 fL Immature Granulocyte % (Auto) 0.4 0-1 % Neutrophils (%) (Auto) 49.4 40.0-77.0 % Lymphocytes (%) (Auto) 25.5 21.0-51.0 % Monocytes (%) (Auto) 10.3 3.0-13.0 % Eosinophils (%) (Auto) 13.6 H 0.0-8.0 % Basophils (%) (Auto) 0.8 0.0-5.0 % Neutrophils # (Auto) 2.4 1.8-7.7 K/uL Lymphocytes # (Auto) 1.2 1.0-4.8 K/uL Monocytes # (Auto) 0.5 0.1-1.0 K/uL Eosinophils # (Auto) 0.66 0.00-0.70 K/uL Basophils # (Auto) 0.04 0.00-0.20 K/uL Absolute Immature Granulocyte (auto 0.02 0-1 K/uL Nucleated Red Blood Cells 0.0 0.0-0.19 % White Cell Morphology Comment See comments Red Blood Cell Morphology See comments Sodium Level 133 L 136-145 mmol/L Potassium Level 5.1 3.5-5.1 mmol/L Chloride Level 98 L 101-111 mmol/L Carbon Dioxide Level 28 21-32 mmol/L Blood Urea Nitrogen 51 H 7-18 mg/dL Creatinine 4.3 H 0.5-1.0 mg/dL Glomerular Filtration Rate Calc 11 >90 mL/min Random Glucose 133 H 70-105 mg/dL Total Calcium 9.1 8.5-10.1 mg/dL Troponin I High Sensitivity 31 4-50 ng/L Current Medications Medications (Trade) Dose Ordered Sig/Zay Route PRN Reason Start Time Stop Time Status Last Admin Dose Admin Acetaminophen (TYLenol 325MG TAB) 650 mg Q4H PRN PO MILD PAIN (1-3) 11/30/24 20:00 12/30/24 19:59 Acetaminophen (TYLenol 325MG TAB) 650 mg Q6H PRN PO TEMPERATURE GREATER THAN 101.5 11/30/24 20:00 12/30/24 19:59 Albuterol (DUOneb) 1 udvial [id number] IH 11/30/24 22:00 12/30/24 21:59 12/01/24 01:50 1 UDVIAL Atropine Sulfate (Atropine 1mg Syg) 1 mg ONCE IVP 11/30/24 18:30 11/30/24 18:32 DC Dextrose (D50w) 50 ml AD PRN IV HYPOGLYCEMIA PROTOCOL 11/30/24 20:00 12/30/24 19:59 Dopamine HCl/ Dextrose 250 ml @ 0 mls/hr PROTOCOL STAT IV 11/30/24 18:30 11/30/24 18:35 DC 11/30/24 19:09 13 MLS/HR Famotidine (Pepcid 20mg Tab) 20 mg Q48H PO 11/30/24 20:00 12/30/24 19:59 11/30/24 19:57 20 MG Glucagon (Glucagon 1mg Kit) 1 mg AD PRN IM HYPOGLYCEMIA PROTOCOL 11/30/24 20:00 12/30/24 19:59 Insulin Human Regular (humuLIN R 100 UNIT/ML 3ML) INSULIN SLIDING SCAL... ACHS SQ 11/30/24 21:00 12/30/24 20:59 Ondansetron HCl (zoFRAN 4MG INJ) 4 mg Q6H PRN IV NAUSEA/VOMITING 11/30/24 20:00 12/30/24 19:59 DIAGNOSTICS / RADIOLOGY: [ ] ASSESSMENT: Symptomatic bradycardia suspecting medication: Metoprolol induced POA Acute respiratory failure with out mechanical ventilation POA supecting sick sinus OA Acute anemia POA Acute thrombocytopenia POA Acute on chronic renal failure on hemodialysis POA Diabetes POA Hyperlipidemia POA Hypertension POA PLAN: Admit: ICU condition: Guarded Status: Full code IVF: Hep-Lock fluid contraindicated on dialysis Strict I&Os daily weight Consultants account support rep's, account support rep's, chief executive or managing director's Medication atropine as needed, dopamine was discontinued. account support rep's started low dose metoprolol 12.5 b.i.d. we will monitor heart rate Test: Echo to evaluate LV function Continue RRT3 times a week avoid NSAIDs, renal dose medication. Labs cbc, cmp, mag+ Replace electrolytes as needed as per protocol to keep potassium above 4.0 magnesium 2.0. Home medications pending to be reviewed by RN nurse. Supportive measures: DVT ppx, GI ppx all questions answered time spent: > 35 min Supervising MD: Dr. Jackman c/d This document was generated in part using voice recognition software, occasional wrong word or sound alike substitutions may have occurred due to the inherent limitations of voice recognition software. Read the chart carefully and recognize using context, where the substitutions have occurred. Although every effort was made to edit the content, senior military analyst and typing errors may occur ATTESTATION BY PHYSICIAN I have seen and examined the patient. I reviewed the documentation, medical decision making, and treatment plan as noted by the mid-level provider above. I agree with the findings and plan of care. KAVON JACKMAN MD, ELIZABETH NP Dec 01, 2024 06:34
[2024-12-01 07:37] LABS: BASOPHILS # (AUTO) 0.06 K/uL (0.00-0.20); BASOPHILS % (AUTO) 1.3 % (0.0-5.0); EOSINOPHILS # (AUTO) 0.46 K/uL (0.00-0.70); HEMATOCRIT 34.3 % (36-48); IMMATURE GRANULOCYTE ABSOLUTE 0.01 K/uL (0-1); LYMPHOCYTES # (AUTO) 1.3 K/uL (1.0-4.8); LYMPHOCYTES % (AUTO) 28.1 % (21.0-51.0); MEAN CORPUSCULAR HEMOGLOBIN 30.9 pg (27.0-33.0); MEAN CORPUSCULAR HGB CONC 30.3 g/dL (32.0-36.0); MEAN CORPUSCULAR VOLUME 101.8 fL (79-99); MONOCYTES # (AUTO) 0.5 K/uL (0.1-1.0); MONOCYTES % (AUTO) 10.4 % (3.0-13.0); NEUTROPHILS # (AUTO) 2.3 K/uL (1.8-7.7); PLATELET COUNT (AUTO) 69 K/uL (130-400); RED BLOOD CELL COUNT(AUTO) 3.37 MIL/uL (4.00-5.50); RED CELL DISTRIBUTION WIDTH 16.1 % (11.0-15.5); WHITE BLOOD COUNT (AUTO) 4.6 K/uL (4.8-10.8)
[2024-12-01 07:45] LABS: INR 1.21 (0.85-1.15); PROTHROMBIN TIME 12.6 SEC (9.6-11.6)
--- NOTE | 2024-12-01 07:53 | CONS ---
Cardiology consultation Date of service: December 01, 2024 Reason for consult: Evaluation of bradycardia Patient's primary customer care professional: Dr. Niko Hopper HISTORY OF PRESENT ILLNESS: This is a 59 year old female with known coronary artery disease status post multiple coronary stenting last 1 2023 at [facility] details to be retrieved, history of sick sinus and episodes of bradycardia during dialysis taking metoprolol succinate 100 mg daily in the outpatient setting, Hypertension, hyperlipidemia, end-stage renal disease on hemodialysis, liver cirrhosis, failed renal transplant, and complicated diabetes Patient had a recent outpatient extended Holter monitor due to episodes of bradycardia during dialysis sessions for which the patient was told unremarkable And no device therapy was recommended. EMS was called during dialysis when the patient was noted to be severely fatigue with bradycardia and hypotension. In the ER, patient's lowest heart rate was recorded in the 30s. EKG done showed sinus bradycardia 45 beats per minute. She was given fluids and atropine with significant reversal of Hemodynamic instability. She denied any chest pains. She does admit to easy fatigability which has not worsened recently. No complaints of fever chills cough GI or symptoms. Cardiac troponin x1 normal. Chest x-ray showed normal cardiac silhouette no infiltrates. PAST MEDICAL HISTORY: As above PAST SURGICAL HISTORY: Multiple AV access surgeries, cholecystectomy, renal transplantation PAST SOCIAL HISTORY: Patient denies alcohol tobacco and recreational drug use FAMILY HISTORY: Negative for premature coronary artery disease Coded Allergies: diphenhydramine (Unverified Allergy, Unknown, 08/19/24) REVIEW OF SYSTEMS CONSTITUTIONAL: Denies fevers, chills, or night sweats. No unintentional weight loss reported. NEUROLOGICAL: Complain of generalized body weakness, dizziness Denies headache, amaurosis fugax, sensory deficit, gait abnormalities, or tremors. ENT: No hearing loss, otalgia, otorrhea, rhinitis, rhinorrhea, hoarseness, or sore throat. CARDIOVASCULAR: Denies any exertional angina, orthopnea, paroxysmal nocturnal dyspnea, palpitations, claudication. PULMONARY: Complain of mild shortness of breaths Denies cough, phlegm/sputum, hemoptysis, pleuritic chest pain. GASTROINTESTINAL: Denies any type of dysphagia to either liquids or solids. Denies nausea, vomiting, pyrosis, early satiety, abdominal pain, diarrhea, constipation, or changes in stool consistency or caliber. Denies coffee-ground emesis, hematemesis, hematochezia, or melanotic stools. GENITOURINARY: Patient is anuric ENDOCRINOLOGIC: polydipsia, polyphagia or heat/cold intolerances. HEMATOLOGIC: No easy bruisability ONCOLOGIC: Denies personal history of malignancy. DERMATOLOGIC: Denies rashes or pruritus. PSYCHIATRIC: Denies any suicidal or homicidal ideation. Denies hallucinations. PHYSICAL EXAM GENERAL APPEARANCE: The patient is awake, alert, and oriented, in no acute cardiopulmonary distress. HEENT: Face is symmetric. Pupils are equal and reactive. Extraocular movements are intact. NECK: Supple. No JVD. No thyromegaly. No submental, submandibular, pre- /postauricular, occipital or supraclavicular lymphadenopathy. CHEST: Symmetrical chest expansion no retractions clear breath sounds CARDIOVASCULAR: Bradycardic Regular rate and rhythm normal S1 and S2 No rubs, murmurs or gallops. ABDOMEN: Soft, nontender, and nondistended. There is no rebound, voluntary guarding, or rigidity. : Deferred. No Prieto. EXTREMITIES: Non-edematous and not cyanotic. No clubbing. Good capillary refill. SKIN: No skin breakdown. Neuro exam: Awake alert oriented x3 no motor and sensory deficits Impression: Symptomatic bradycardia in this patient with likely underlying sick sinus worsened by high-dose Metoprolol succinate 100 mg daily in this patient with dialysis dependent renal failure that may have had a heightened vagal tone That was easily reversed by fluids and atropine. Diagnosis: 1. Symptomatic bradycardia 2. Suspected sick sinus 3. Coronary artery disease prior coronary stenting x3 details unknown last 2023 4. Multidrug treatment resistant hypertension 5. Dialysis dependent renal failure Recommendations: Regarding bradycardia, patient's hemodynamics are now normal. Recommend to resume very low-dose metoprolol succinate To 25 mg daily and monitor for any recurrent bradycardia. If the patient develops daytime heart rate less than 40, Nighttime heart rate less than 30, or pause more than 3 seconds, device therapy will be recommended then. Plan to reassess ejection fraction if no echocardiogram was done within the past 6 months. Avoid any bradycardia inducing medications. Give IV atropine as needed. Recommend for the primary team to check thyroid function tests and workup for other situations that can cause increased/heightened vagal tone Regarding multidrug hypertension resume hydralazine and isosorbide and optimize the dose as needed to control blood pressure Less than 135 mm Hg. As mentioned above, avoid any bradycardia inducing drugs such as non dihydropyridine calcium channel blockers Or Clonidine. Plan to notify Dr. Hopper 12/03/2024 for assumption of care Patient History: Diabetes mellitus SON Hypertension SON Vitals/Labs Vital Signs Date Time Temp Pulse Resp B/P (MAP) Pulse Ox O2 Delivery O2 Flow Rate FiO2 12/01/24 06:49 57 20 N/Cannula Low lpm 2.0 12/01/24 06:27 169/65 98 28 11/30/24 18:46 98.4 Laboratory Tests 11/30/24 17:14 12/01/24 07:08 Allergies: Coded Allergies: diphenhydramine (Unverified Allergy, Unknown, 08/19/24) ZAINA JACOBSON MD Dec 01, 2024 07:53
[2024-12-01 07:57] LABS: ALBUMIN 2.6 g/dL (3.5-5.0); BILIRUBIN,TOTAL 0.6 mg/dL (0.2-1.0); CREATININE 4.8 mg/dL (0.5-1.0); MAGNESIUM 2.3 mg/dL (1.80-2.40); POTASSIUM 5.9 mmol/L (3.5-5.1); THYROID STIMULATING HORMONE 1.3 uIU/mL (0.36-3.74); TOTAL PROTEIN, SERUM 8.2 g/dL (6.0-8.3)
[2024-12-01 08:30] LABS: PLATELET MORPHOLOGY COMMENT DECREASED
[2024-12-01] MEDS: metoPROLOL tartRATE 25 MG TAB PO SCH (09:00)
[2024-12-01] MEDS ORDERED: INSU100I3 SQ (10:32)
[2024-12-01] MEDS ORDERED: LIDO5CRE2 TP (10:32)
[2024-12-01] MEDS ORDERED: MECO10005 PO (10:32)
[2024-12-01] MEDS ORDERED: SUCR1TAB2 PO (10:34)
--- NOTE | 2024-12-01 11:33 | EKG ---
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
--- NOTE | 2024-12-01 12:45 | PN ---
[facility] PROGRESS NOTE Date Patient Seen: Dec 01, 2024 Time of Visit: 12:37 Supervising Physician: Dr. Delcid Primary Care Physician: [ Dr. Jameel Carr] Outpatient Specialists: [Dr. Roach, Dr. Hopper-cardiology] Inpatient Consults: [ Dr. Roach, Dr. Grande-cardiology] PROBLEM LIST: Severe symptomatic bradycardia requiring Dopamine drip-POA Symptomatic hypotension-POA Missed dialysis due to symptomatic hypotension-POA ESRD-HD MWF Primary HTN Prior renal transplant with failure Anemia of chronic disease Thrombocytopenia Liver cirrhosis INTERVAL HISTORY: 12/01/2024: At the time of my evaluation, the patient is lying in bed. The staff nurse reports no acute events overnight. On the monitor, the patient is NSR and is currently off dopamine drip. She reports feeling much better today. Laboratory data today, was notable for a potassium of 5.9, BUN of 56, creatinine of 4.8 and a GFR of 10. Hemodialysis nurse present at the bedside. No other complaint. REVIEW OF SYSTEMS: 12 point ROS reviewed with patient. Pertinent positives mentioned above. Otherwise negative. PHYSICAL EXAM: GENERAL: alert, weak, awake oriented x 3 HEENT: EOMI, Sclera non icteric, moist mucosa NECK: Supple, no JVD, trachea midline LUNGS: Clear breath sounds bilaterally. No wheezes HEART: Regular rate and rhythm. Normal S1 and S2, without murmurs ABD: Abdomen soft, nontender. Bowel sounds present EXT: No clubbing cyanosis or edema, LAVA (+) thrill and bruit NEURO: Alert and oriented to person, follows commands Vital Signs (last 8hr) Date Time Temp Pulse Resp B/P (MAP) Pulse Ox O2 Delivery O2 Flow Rate FiO2 12/01/24 08:30 99 Nasal Cannula* 2 28 12/01/24 06:49 57 20 N/Cannula Low lpm 2.0 12/01/24 06:48 57 20 12/01/24 06:27 57 18 169/65 98 Nasal Cannula* 2 28 LABS: Hematology Labs: Test 12/01/24 07:08 11/30/24 17:14 Range/Units White Blood Count 4.6 L 4.8-10.8 K/uL Red Blood Count 3.37 L 4.00-5.50 MIL/uL Hemoglobin 10.4 L 12.0-16.0 g/dL Hematocrit 34.3 L 36-48 % Mean Corpuscular Volume 101.8 H 79-99 fL Mean Corpuscular Hemoglobin 30.9 27.0-33.0 pg Mean Corpuscular Hemoglobin Concent 30.3 L 32.0-36.0 g/dL Red Cell Distribution Width 16.1 H 11.0-15.5 % Platelet Count 69 L 130-400 K/uL Mean Platelet Volume 10.7 H 7.5-10.5 fL Immature Granulocyte % (Auto) 0.2 0-1 % Neutrophils (%) (Auto) 50.0 40.0-77.0 % Lymphocytes (%) (Auto) 28.1 21.0-51.0 % Monocytes (%) (Auto) 10.4 3.0-13.0 % Eosinophils (%) (Auto) 10.0 H 0.0-8.0 % Basophils (%) (Auto) 1.3 0.0-5.0 % Neutrophils # (Auto) 2.3 1.8-7.7 K/uL Lymphocytes # (Auto) 1.3 1.0-4.8 K/uL Monocytes # (Auto) 0.5 0.1-1.0 K/uL Eosinophils # (Auto) 0.46 0.00-0.70 K/uL Basophils # (Auto) 0.06 0.00-0.20 K/uL Absolute Immature Granulocyte (auto 0.01 0-1 K/uL Nucleated Red Blood Cells 0.0 0.0-0.19 % Platelet Morphology Comment DECREASED White Cell Morphology Comment See comments Red Blood Cell Morphology See comments Chemistry Labs: Test 12/01/24 12:23 12/01/24 07:08 11/30/24 17:14 Range/Units Whole Blood Glucose 203 H 70-110 MG/DL Sodium Level 135 L 136-145 mmol/L Potassium Level 5.9 H 3.5-5.1 mmol/L Chloride Level 101 101-111 mmol/L Carbon Dioxide Level 28 21-32 mmol/L Blood Urea Nitrogen 56 H 7-18 mg/dL Creatinine 4.8 H 0.5-1.0 mg/dL Glomerular Filtration Rate Calc 10 >90 mL/min Random Glucose 253 #H 70-105 mg/dL Total Calcium 9.0 8.5-10.1 mg/dL Magnesium Level 2.30 1.80-2.40 mg/dL Total Bilirubin 0.6 0.2-1.0 mg/dL Aspartate Amino Transf (AST/SGOT) 30 10-37 U/L Alanine Aminotransferase (ALT/SGPT) 17 12-78 U/L Alkaline Phosphatase 288 H 50-136 U/L Total Protein 8.2 6.0-8.3 g/dL Albumin 2.6 L 3.5-5.0 g/dL Thyroid Stimulating Hormone (TSH) 1.30 0.36-3.74 uIU/mL Troponin I High Sensitivity 31 4-50 ng/L Coagulation Labs: Test 12/01/24 07:08 Range/Units Prothrombin Time 12.6 H 9.6-11.6 SEC Prothromb Time International Ratio 1.21 H 0.85-1.15 Activated Partial Thromboplast Time 39.0 H 26.3-35.5 SEC DIAGNOSTICS / RADIOLOGY RESULTS: [ ] PLAN 12/01/2024: For now, going to continue current management for the patient. We will continue to monitor the heart rate and intervene if any further arrhythmias. Per Cardiology, recommend to resume metoprolol succinate at 25 mg daily and monitor for any recurrent bradycardia. If the patient develops dayti me heart rate less than 40, nighttime heart rate less than 30, or pause more than 3 seconds, device therapy will be recommended then. Appreciate their input. I believe the patient can be downgraded to telemetry or Medical with TELE. We will monitor the patient's progress and response to management. We will continue to provide general supportive care, GI and DVT prophylaxis. Furt her orders per attending MD and hospital course. NEURO: Minimize central acting medications as possible. Fall Precautions. Well lighted room through the day and minimize interruptions through the night to prevent acute delirium. PULMONARY: Supplemental 02 as needed Titrate Fio2 to keep Spo2 > or = 90% DuoNebs and CPT as needed IS hourly while awake for pulmonary hygiene Out of bed to chair as tolerated VAP Bundle Vent/BIPAP Settings: [ ] CARDIOVASCULAR: Follow hemodynamics. Titrate vasopressor to keep MAP >65 or systolic blood pressure >95mmHg DIPS: None LINES: PIV's GI & NUTRITION: Continue nutritional support Aspirations precautions Prokinetic agents and laxatives as needed KIDNEYS & ELECTROLYTES: Strict monitoring of intake and output Daily weights Avoid nephrotoxic agents Monitor electrolytes and replace as needed Goal urine output of 30mL/hr or 0.5mL/kg/hr Urine output: [ ] Fluid Balance: [ ] ENDOCRINE: Maintain blood glucose between 100-180 at all times. Insulin sliding scale for blood glucose management INFECTIOUS DISEASE: Trend temperature. Mejia-culture if febrile. Micro: [ ] Antibiotics: [ ] HEMATOLOGY & COAGULATION: Monitor H&H. Keep Hgb > 7 Transfuse 1 unit of PRBC for Hgb < 7 Transfuse 1 pack of platelets of platelets < 20, 000 Watch for any signs and symptoms of bleeding SKIN: Pressure ulcer prevention per facility protocol Rehab: PT/OT Prophylaxis: GI: [ ] DVT: [ ] Code Status: Full Resuscitation Disposition: ICU Other: Total patient care time exceeds 35 minutes excluding all procedures. Case was discussed and seen with my supervising physician. The above plan was formulated and agreed upon. DWAIN ESPINOZA NP Dec 01, 2024 12:45
[2024-12-01 12:58] LABS: SARS-CoV-2, RNA, NAAT NEGATIVE SARS CoV-2 (NEGATIVE)
[2024-12-01 13:04] LABS: INFLUENZA TYPE A Negative For Type A (NEGATIVE); INFLUENZA TYPE B Negative For Type B (NEGATIVE)
[2024-12-01] MEDS: acetaMINOPHEN 325 MG TAB PO PRN (14:05)
[2024-12-01] MEDS: 0.9%NACL 1000ML 1,000 ML IV SCH (15:53)
[2024-12-01] MEDS: BENZONATATE 100 MG CAPSULE PO PRN (20:01)
--- NOTE | 2024-12-01 21:14 | CONS ---
REFERRING PHYSICIAN: Constance Teague MD REASON FOR CONSULTATION: Bradycardia and ESRD. HISTORY OF PRESENT ILLNESS: The patient is a 59-year-old female with a history of diabetes mellitus and hypertension. She has a history of end-stage renal disease, on dialysis 3 times per week. The patient with previous history of renal transplant. The patient presented to the hospital with hypotension and significant bradycardia. The patient's initial heart rate in the 30s. The patient was unable to receive outpatient dialysis on 11/30/2024 secondary to the above. The patient is being seen for urgent dialysis. PAST MEDICAL HISTORY: Diabetes mellitus, hypertension, hypercholesterolemia, ESRD, coronary artery disease. PAST SURGICAL HISTORY: AV access and renal transplant. SOCIAL HISTORY: She lives independently. There is no tobacco use. FAMILY HISTORY: There is no renal disease in the family. ALLERGIES: SHE HAS ALLERGY TO BENADRYL. MEDICATIONS: All noted. REVIEW OF SYSTEMS: GENERAL: She is feeling weak and tired. HEENT: No change in vision. No change in hearing. CARDIOVASCULAR: There is no current chest pain or palpitations. PULMONARY: She has chronic shortness of breath. GASTROINTESTINAL: She is tolerating a diet. MUSCULOSKELETAL: Complains of weakness. NEUROLOGIC: No history of seizures or focal deficits. PSYCHIATRIC: No history of hallucinations or psychosis. ENDOCRINE: Diabetes mellitus. No history of thyroid disease. HEME: History of anemia. No history of malignancy. PHYSICAL EXAMINATION: VITAL SIGNS: Blood pressure is 159/53, pulse in the 60s, afebrile. GENERAL: Chronically ill female, elderly, lying in bed in the medical floor. HEENT: Head is atraumatic. Pupils equal, roving to light. Oropharynx is without exudate. Nares clear. NECK: There is no JVP. There is no thyromegaly, no mass. CARDIOVASCULAR: Regular. There is no S3, S4 gallop. LUNGS: Coarse with equal thoracic movement. ABDOMEN: Soft, nondistended, nontender. EXTREMITIES: Reveal no clubbing. No cyanosis. NEUROLOGICAL: She is awake. She is alert. She is oriented. SKIN: Reveals no rash or nodules. BACK: There is no CVA tenderness, no back deformities. LABORATORY DATA: Sodium 135, potassium 5.9, BUN 56, creatinine 4.8. Hemoglobin 10, hematocrit 34, white cell count 4000, platelet count 69,000. IMPRESSION: * Symptomatic bradycardia. * Diabetes mellitus. * Hypertension. * Hyperkalemia. * End-stage renal disease. PLAN: The patient will receive urgent dialysis on the day of this consultation. The patient's hyperkalemia will resolve post-dialysis. The patient is being seen by Cardiology in regards to the patient's bradycardia. We will continue to monitor the hemodynamics closely. All labs including phosphorus will be rechecked in the morning. The patient will be resumed on Epogen for the anemia. We will continue to follow the patient closely. The patient with multiple questions, all of which were all answered. TID: [id number] RECEIPT: [id number]
[2024-12-01] MEDS: HYDROcodone/APAP 5/325 1 TAB TABLET PO ONE (23:54)
[2024-12-02] VITALS (13 sets, daily range): BP systolic 121–145; BP diastolic 53–66; PULSE 72–86; RESP 16–22; TEMP 97.9–98.7; O2SAT 95–97
[2024-12-02 03:16] LABS: HEPATITIS B CORE AB TOTAL Non-Reactive (Nonreactive); HEPATITIS B SURFACE ANTIGEN Non-Reactive (Nonreactive)
[2024-12-02 04:25] LABS: HEPATITIS B SURFACE ANTIBODY Positive (Reactive)
[2024-12-02 04:43] LABS: BASOPHILS # (AUTO) 0.05 K/uL (0.00-0.20); BASOPHILS % (AUTO) 1.1 % (0.0-5.0); EOSINOPHILS # (AUTO) 0.47 K/uL (0.00-0.70); HEMATOCRIT 35.9 % (36-48); IMMATURE GRANULOCYTE ABSOLUTE 0.01 K/uL (0-1); LYMPHOCYTES # (AUTO) 0.9 K/uL (1.0-4.8); LYMPHOCYTES % (AUTO) 18.4 % (21.0-51.0); MEAN CORPUSCULAR HEMOGLOBIN 30.5 pg (27.0-33.0); MEAN CORPUSCULAR HGB CONC 30.6 g/dL (32.0-36.0); MEAN CORPUSCULAR VOLUME 99.4 fL (79-99); MONOCYTES # (AUTO) 0.4 K/uL (0.1-1.0); MONOCYTES % (AUTO) 7.4 % (3.0-13.0); NEUTROPHILS % (AUTO) 62.9 % (40.0-77.0); PLATELET COUNT (AUTO) 86 K/uL (130-400); RED BLOOD CELL COUNT(AUTO) 3.61 MIL/uL (4.00-5.50); RED CELL DISTRIBUTION WIDTH 16.2 % (11.0-15.5); WHITE BLOOD COUNT (AUTO) 4.7 K/uL (4.8-10.8)
[2024-12-02 05:01] LABS: CREATININE 3.6 mg/dL (0.5-1.0); PHOSPHORUS 3.6 mg/dL (2.5-4.9); POTASSIUM 4.3 mmol/L (3.5-5.1)
--- NOTE | 2024-12-02 08:59 | HMCSR ---
APPROVED REPORT EXAM: Two-dimensional and M-mode echocardiogram with Doppler and color Doppler. INDICATION ICD: Symptomatic severe bradycardia 2D Dimensions RVDd4.7 cmLVEF(%)55.0 (>50%)LVED Vol(simp.)142.4 mL IVSd1.6 (0.7-1.1cm)FS(%)29 %LVES Vol(simp.)59.7 mL LVDd5.0 (3.8-5.6cm)LA (2D)4.8 (1.6-4.0cm)LVEF(%, simp.)58 % PWd0.8 (0.7-1.1cm)Ao Root(2D)3.3 (2.0-3.7cm)LA ESV INDEX (BP)41.08 mL/m2 IVSs1.6 cmLVOT diam1.7 (1.8-2.4cm) LVDs3.5 (2.5-4.0cm)IVC diam2.4 cm PWs1.3 cm M-Mode Dimensions EPSS1.6 cm LA (MM)4.5 (1.6-4.0cm) Ao Root(MM)3.2 (2.0-3.7cm) Aortic Valve AoV Vmax1.3 m/Patti Peak GR6.5 mmHgLVOT Vmax0.9 m/s AoV VTI0.3 mAo Mean GR3.4 mmHgLVOT VTI0.24 m TEZ (VMAX)1.7 cm2AVA (VTI) 1.7 cm2 Mitral Valve MV E Drjb679.2 cm/sDECEL Sfhy399 ms MV A Vmax85.9 cm/s E/A ratio1.4 TDI E/E' Otpyak82.0E/E' Yuwwvot83.7 Medial E' Peak V4.00 cm/sLateral E' Peak V6.00 cm/s Pulmonary Valve PV Vmax1.0 m/s Tricuspid Valve TR Vmax5.2 m/sRAP (EST) 15 izOgHFRS336.5 mmHg TR Peak GR116.5 mmHg Left Ventricle The left ventricle is normal size. Moderate to severe concentric left ventricular hypertrophy. LVEF i s 55%. The left ventricular diastolic function is normal. Right Ventricle The right ventricle is moderately dilated. The right ventricular systolic function is normal. Atria The left atrium is moderately dilated. The right atrium is moderately dilated. Aortic Valve The aortic valve is normal in structure. Moderate aortic regurgitation is present. There is no aortic valvular stenosis. Mitral Valve The mitral valve is thickened. There is mitral annular calcification. There is mild mitral valve regu rgitation noted. There is no mitral valve stenosis. Tricuspid Valve The tricuspid valve is normal in structure. There is moderate tricuspid valve regurgitation noted. RV SP 132.0mmHg. Pulmonic Valve The pulmonary valve is normal in structure. There is mild pulmonic valvular regurgitation. Great Vessels The aortic root is normal in size. IVC is dilated and collapses <50% with inspiration. Pericardium There is small to moderate sized pericardial effusion. No echo indications of pericardial tamponade. Other Information Quality : Adequate Conclusion Normal LV EF MOderate aotic regurgitation Small to moderate sized pericardial effusion Elevated RVSP and PA pressures Dilated atria
--- NOTE | 2024-12-02 09:09 | PN ---
Cardiology follow-up Date of service: December 02, 2024 Reason for consult: Evaluation of bradycardia Patient's primary senior business consultant: Dr. Niko Hopper HISTORY OF PRESENT ILLNESS: This is a 59 year old female with known coronary artery disease status post multiple coronary stenting last done 2023 at [facility] [place] details to be retrieved, history of sick sinus and episodes of bradycardia during dialysis taking metoprolol succinate 100 mg daily in the outpatient setting, Hypertension, hyperlipidemia, end-stage renal disease on hemodialysis, liver cirrhosis, failed renal transplant, and complicated diabetes Patient underwent an echocardiogram showing normal LV ejection fraction, moderate aortic regurgitation, [id number] size circumferential Pericardial effusion with no evidence of pericardial tamponade and dilated atria. Heart rate is improved after reduction of the dose of metoprolol tartrate to 12.5 mg p.o. b.i.d. Telemetry showed no evidence of dysrhythmias. PHYSICAL EXAM GENERAL APPEARANCE: The patient is awake, alert, and oriented, in no acute cardiopulmonary distress. HEENT: Face is symmetric. Pupils are equal and reactive. Extraocular movements are intact. NECK: Supple. No JVD. No thyromegaly. No submental, submandibular, pre- /postauricular, occipital or supraclavicular lymphadenopathy. CHEST: Symmetrical chest expansion no retractions clear breath sounds CARDIOVASCULAR: Bradycardic Regular rate and rhythm normal S1 and S2 No rubs, murmurs or gallops. ABDOMEN: Soft, nontender, and nondistended. There is no rebound, voluntary guarding, or rigidity. : Deferred. No Prieto. EXTREMITIES: Non-edematous and not cyanotic. No clubbing. Good capillary refill. SKIN: No skin breakdown. Neuro exam: Awake alert oriented x3 no motor and sensory deficits Impression: Symptomatic bradycardia in this patient with likely underlying sick sinus worsened by high-dose Metoprolol succinate 100 mg daily in this patient with dialysis dependent renal failure that may have had a heightened vagal tone That was easily reversed by fluids and atropine. Diagnosis: 1. Symptomatic bradycardia now improved 2. Suspected sick sinus 3. Coronary artery disease prior coronary stenting x3 details unknown last 1 done 2023 4. Newly recognized small to moderate size pericardial effusion unknown etiology suspecting related to renal failure 5. Dialysis dependent renal failure 6. Newly recognized valvular heart disease with moderate aortic regurgitation Recommendations: Regarding bradycardia, continue low-dose metoprolol tartrate 12.5 mg p.o. b.i.d.. Avoid high dosages of beta-camilla Or non dihydropyridine calcium channel blockers. Avoid any bradycardia inducing drugs, no indication for pacemaker at this time. Regarding small to moderate size pericardial effusion, order a chest CT, antinuclear antibody thyroid function test and rheumatoid factor. Regarding valvular heart disease with moderate aortic regurgitation, recommend to primary team and Dr Hopper to consider CTA To exclude thoracic aortic ectasia or aneurysm as a cause of valvular regurgitation Regarding multidrug hypertension resume hydralazine and isosorbide and optimize the dose as needed to control blood pressure Less than 135 mm Hg. As mentioned above, avoid any bradycardia inducing drugs such as non dihydropyridine calcium channel blockers Or Clonidine. Plan to notify Dr. Hopper 12/03/2024 for assumption of care Vitals/Labs Vital Signs Date Time Temp Pulse Resp B/P (MAP) Pulse Ox O2 Delivery O2 Flow Rate FiO2 12/02/24 08:31 97.9 86 16 145/62 94 Room Air 12/02/24 06:53 21 12/02/24 03:25 2.0 Laboratory Tests 12/02/24 04:28 ZAINA JACOBSON MD Dec 02, 2024 09:09
--- NOTE | 2024-12-02 09:48 | PN ---
[facility] PROGRESS NOTE Date Patient Seen: Dec 02, 2024 Time of Visit: 09:43 Supervising Physician: [Farhana Primary Care Physician: [ Dr. Jameel Carr] Outpatient Specialists: [Dr. Roach, Dr. Hopper-cardiology] Inpatient Consults: [ Dr. Roach, Dr. Grande-cardiology] PROBLEM LIST: Severe symptomatic bradycardia requiring Dopamine drip-POA resolved Symptomatic hypotension-POA resolved Missed dialysis due to symptomatic hypotension-POA ESRD-HD MWF Primary HTN Prior renal transplant with failure Anemia of chronic disease Thrombocytopenia Liver cirrhosis Plan Summary: Supplemental oxygen as needed Wean off as tolerated Telemetry monitoring Strict I&Os Daily weights HD as per Nephrology Continue metoprolol Follow cardio recs Dispo: As per attending INTERVAL HISTORY: 12/01/2024: At the time of my evaluation, the patient is lying in bed. The staff nurse reports no acute events overnight. On the monitor, the patient is NSR and is currently off dopamine drip. She reports feeling much better today. Laboratory data today, was notable for a potassium of 5.9, BUN of 56, creatinine of 4.8 and a GFR of 10. Hemodialysis nurse present at the bedside. No other complaint. 12/02 - patient was transferred out of ICU where she was being cared for secondary to severe symptomatic bradycardia requiring dopamine drip. Patient has been off dopamine drip for24 hours and patient's heart rate and blood pressure remained stable. No acute changes reported overnight. Patient is seen sitting up in bed does not appear to be in any acute distress at this time. Patient is currently on room air and denies dyspnea. Patient had hemodialysis yesterday with 3.5 L removed. Patient was evaluated by Cardiology and recommend continue low-dose metoprolol 12.5 mg b.i.d.., resume hydralazine and isosorbide to optimize blood pressure. From a pulmonary standpoint, patient is stable. REVIEW OF SYSTEMS: 12 point ROS reviewed with patient. Pertinent positives mentioned above. Otherwise negative. PHYSICAL EXAM: GENERAL: alert, weak, awake oriented x 3 HEENT: EOMI, Sclera non icteric, moist mucosa NECK: Supple, no JVD, trachea midline LUNGS: Clear breath sounds bilaterally. No wheezes HEART: Regular rate and rhythm. Normal S1 and S2, without murmurs ABD: Abdomen soft, nontender. Bowel sounds present EXT: No clubbing cyanosis or edema, LAVA (+) thrill and bruit NEURO: Alert and oriented to person, follows commands Vital Signs (last 8hr) Date Time Temp Pulse Resp B/P (MAP) Pulse Ox O2 Delivery O2 Flow Rate FiO2 12/02/24 08:31 97.9 86 16 145/62 94 Room Air 12/02/24 06:53 77 18 12/02/24 06:53 77 18 N/A Room Air 21 12/02/24 03:25 98.2 77 18 138/64 98 Nasal Cannula 2.0 LABS: Hematology Labs: Test 12/02/24 04:28 12/01/24 07:08 11/30/24 17:14 Range/Units White Blood Count 4.7 L 4.8-10.8 K/uL Red Blood Count 3.61 L 4.00-5.50 MIL/uL Hemoglobin 11.0 L 12.0-16.0 g/dL Hematocrit 35.9 L 36-48 % Mean Corpuscular Volume 99.4 H 79-99 fL Mean Corpuscular Hemoglobin 30.5 27.0-33.0 pg Mean Corpuscular Hemoglobin Concent 30.6 L 32.0-36.0 g/dL Red Cell Distribution Width 16.2 H 11.0-15.5 % Platelet Count 86 L 130-400 K/uL Mean Platelet Volume 11.1 H 7.5-10.5 fL Immature Granulocyte % (Auto) 0.2 0-1 % Neutrophils (%) (Auto) 62.9 40.0-77.0 % Lymphocytes (%) (Auto) 18.4 L 21.0-51.0 % Monocytes (%) (Auto) 7.4 3.0-13.0 % Eosinophils (%) (Auto) 10.0 H 0.0-8.0 % Basophils (%) (Auto) 1.1 0.0-5.0 % Neutrophils # (Auto) 3.0 1.8-7.7 K/uL Lymphocytes # (Auto) 0.9 L 1.0-4.8 K/uL Monocytes # (Auto) 0.4 0.1-1.0 K/uL Eosinophils # (Auto) 0.47 0.00-0.70 K/uL Basophils # (Auto) 0.05 0.00-0.20 K/uL Absolute Immature Granulocyte (auto 0.01 0-1 K/uL Nucleated Red Blood Cells 0.0 0.0-0.19 % Platelet Morphology Comment DECREASED White Cell Morphology Comment See comments Red Blood Cell Morphology See comments Chemistry Labs: Test 12/02/24 06:05 12/02/24 04:28 12/01/24 07:08 11/30/24 17:14 Range/Units Whole Blood Glucose 200 H 70-110 MG/DL Sodium Level 131 L 136-145 mmol/L Potassium Level 4.3 3.5-5.1 mmol/L Chloride Level 95 L 101-111 mmol/L Carbon Dioxide Level 30 21-32 mmol/L Blood Urea Nitrogen 37 H 7-18 mg/dL Creatinine 3.6 H 0.5-1.0 mg/dL Glomerular Filtration Rate Calc 14 >90 mL/min Random Glucose 179 H 70-105 mg/dL Total Calcium 9.5 8.5-10.1 mg/dL Phosphorus Level 3.6 2.5-4.9 mg/dL Magnesium Level 2.30 1.80-2.40 mg/dL Total Bilirubin 0.6 0.2-1.0 mg/dL Aspartate Amino Transf (AST/SGOT) 30 10-37 U/L Alanine Aminotransferase (ALT/SGPT) 17 12-78 U/L Alkaline Phosphatase 288 H 50-136 U/L Total Protein 8.2 6.0-8.3 g/dL Albumin 2.6 L 3.5-5.0 g/dL Thyroid Stimulating Hormone (TSH) 1.30 0.36-3.74 uIU/mL Troponin I High Sensitivity 31 4-50 ng/L Coagulation Labs: Test 12/01/24 07:08 Range/Units Prothrombin Time 12.6 H 9.6-11.6 SEC Prothromb Time International Ratio 1.21 H 0.85-1.15 Activated Partial Thromboplast Time 39.0 H 26.3-35.5 SEC DIAGNOSTICS / RADIOLOGY RESULTS: [ ] PLAN NEURO: Minimize central acting medications as possible. Maintain fall precautions, adequate lighting during the day PULMONARY: Supplemental 02 as needed. Maintain aspiration precautions at all times CARDIOVASCULAR: Follow hemodynamics. Vital signs per facility protocol GI & NUTRITION: Continue with nutritional support. Continue stool softeners and laxatives as needed. KIDNEYS & ELECTROLYTES: Strict monitoring of intake, output and overall fluid balance. Avoid nephrotoxic medications to the extent possible. Medications to be dosed according to renal function. Monitor electrolytes and replace as needed ENDOCRINE: Maintain blood glucose between 100-180 at all times. Hypoglycemia protocol in place INFECTIOUS DISEASE: Trend temperature, WBC and procalcitonin level Follow cultures, deescalate antibiotics as soon as possible. Panculture if new onset fever ONCOLOGY/HEMATOLOGY/COAGULATION: Monitor for s/s of bleeding Monitor hemoglobin, coagulation studies as needed SKIN: Pressure ulcer prevention per facility protocol Specialty mattress ORTHO/REHAB: Continue PT/OT Prophylaxis: Continue GI and DVT prophylaxis Code Status: Full Resuscitation Disposition: As per attending Other: Total patient care time: 35 minutes ATTESTATION BY PHYSICIAN I reviewed the documentation, medical decision making, and treatment plan as noted by the mid-level provider above. I agree with the findings and plan of care. Ramírez Delcid MD, ECTOR N NP Dec 02, 2024 09:48
--- NOTE | 2024-12-02 10:20 | PN ---
[facility] PROGRESS NOTE Date of Service: Dec 02, 2024 Time of Service: 10:16 SUBJECTIVE: [ ] This is a 59 year old female [place] speaking with past medical history of Hypertension, hyperlipidemia, end-stage renal disease on hemodialysis MWF , liver cirrhosis, renal transplant which has failed, diabetic retinopathy with loss of vision of the right eye, coronary artery disease who was brought by EMS to the ED from hemodialysis center for complaints of feeling weak and low BP and her HR was in the 30's ,thus prompted this admission. Patient stated she was not hemodialyzed for above reasons. Patient stated she is taking Metoprolol 100mg po daily and last dose taken was the night before her hemodialysis session. Patient admitted to the progressive care unit for further evaluation and medical management. Patient remains stable, blood pressure 145/62, afebrile, saturating normal on room air, heart rate controlled at 86. Noted to have mild abdominal distention, she stated that she gets paracentesis on a regular basis. Echocardiogram reported as normal LVEF, moderate aortic regurgitation, small to moderate size pericardial effusion, elevated RVSP and PA pressures, dilated atrium REVIEW OF SYSTEMS CONSTITUTIONAL: Denies fevers, chills, or night sweats. No unintentional weight loss reported. NEUROLOGICAL: Complain of generalized body weakness, dizziness Denies headache, amaurosis fugax, sensory deficit, gait abnormalities, or tremors. ENT: No hearing loss, otalgia, otorrhea, rhinitis, rhinorrhea, hoarseness, or sore throat. CARDIOVASCULAR: Denies any exertional angina, dyspnea on exertion, orthopnea, paroxysmal nocturnal dyspnea, palpitations, life-threatening arrhythmias, claudication. PULMONARY: Complain of mild shortness of breaths Denies cough, phlegm/sputum, hemoptysis, pleuritic chest pain. SLEEP: Denies morning headaches, daytime somnolence or napping. Denies difficulty falling asleep, staying asleep, waking from sleep. Denies knowledge of snoring. GASTROINTESTINAL: Denies any type of dysphagia to either liquids or solids. Denies nausea, vomiting, pyrosis, early satiety, abdominal pain, diarrhea, constipation, or changes in stool consistency or caliber. Denies coffee-ground emesis, hematemesis, hematochezia, or melanotic stools. GENITOURINARY: Denies frequency, urgency, nocturia, hematuria or incontinence (Storage/Irritative symptoms.) Low urinary stream, straining to void, urinary intermittency or hesitancy, splitting of the voiding stream, terminal dribbling. ENDOCRINOLOGIC: Denies polyuria, polydipsia, polyphagia or heat/cold intolerances. HEMATOLOGIC: Denies thrombophilia/previous clots, or coagulopathy/bleeding disorders. ONCOLOGIC: Denies personal history of malignancy. DERMATOLOGIC: Denies rashes or pruritus. PSYCHIATRIC: Denies any suicidal or homicidal ideation. Denies hallucinations. PHYSICAL EXAM GENERAL APPEARANCE: The patient is awake, alert, and oriented, in no acute cardiopulmonary distress. NEUROLOGICAL: Cranial nerves II-XII grossly intact. Motor is 5/5 in bilateral upper and lower extremities proximal to distal. No sensory deficits. HEENT: Face is symmetric. Pupils are equal and reactive. Extraocular movements are intact. NECK: Supple. No JVD. No thyromegaly. No submental, submandibular, pre- /postauricular, occipital or supraclavicular lymphadenopathy. CHEST: Normal chest expansion. + Telemetry. LUNGS: Absence of any rales, rhonchi or any wheezing. CARDIOVASCULAR: Bradycardic Regular. S1 and S2 normal. No appreciable rubs, murmurs or gallops. ABDOMEN: Mild ascites noted : Deferred. No Prieto. EXTREMITIES: Non-edematous and not cyanotic. No clubbing. Good capillary refill. SKIN: No skin breakdown. Vital Signs (last 8hr) Date Time Temp Pulse Resp B/P (MAP) Pulse Ox O2 Delivery O2 Flow Rate FiO2 12/02/24 09:50 97 Room Air* 0 21 12/02/24 08:31 97.9 86 16 145/62 94 Room Air 12/02/24 06:53 77 18 12/02/24 06:53 77 18 N/A Room Air 21 12/02/24 03:25 98.2 77 18 138/64 98 Nasal Cannula 2.0 LABS: Laboratory: Test 12/02/24 06:05 12/02/24 04:28 12/01/24 14:28 12/01/24 12:24 Range/Units Whole Blood Glucose 200 H 70-110 MG/DL White Blood Count 4.7 L 4.8-10.8 K/uL Red Blood Count 3.61 L 4.00-5.50 MIL/uL Hemoglobin 11.0 L 12.0-16.0 g/dL Hematocrit 35.9 L 36-48 % Mean Corpuscular Volume 99.4 H 79-99 fL Mean Corpuscular Hemoglobin 30.5 27.0-33.0 pg Mean Corpuscular Hemoglobin Concent 30.6 L 32.0-36.0 g/dL Red Cell Distribution Width 16.2 H 11.0-15.5 % Platelet Count 86 L 130-400 K/uL Mean Platelet Volume 11.1 H 7.5-10.5 fL Immature Granulocyte % (Auto) 0.2 0-1 % Neutrophils (%) (Auto) 62.9 40.0-77.0 % Lymphocytes (%) (Auto) 18.4 L 21.0-51.0 % Monocytes (%) (Auto) 7.4 3.0-13.0 % Eosinophils (%) (Auto) 10.0 H 0.0-8.0 % Basophils (%) (Auto) 1.1 0.0-5.0 % Neutrophils # (Auto) 3.0 1.8-7.7 K/uL Lymphocytes # (Auto) 0.9 L 1.0-4.8 K/uL Monocytes # (Auto) 0.4 0.1-1.0 K/uL Eosinophils # (Auto) 0.47 0.00-0.70 K/uL Basophils # (Auto) 0.05 0.00-0.20 K/uL Absolute Immature Granulocyte (auto 0.01 0-1 K/uL Nucleated Red Blood Cells 0.0 0.0-0.19 % Sodium Level 131 L 136-145 mmol/L Potassium Level 4.3 3.5-5.1 mmol/L Chloride Level 95 L 101-111 mmol/L Carbon Dioxide Level 30 21-32 mmol/L Blood Urea Nitrogen 37 H 7-18 mg/dL Creatinine 3.6 H 0.5-1.0 mg/dL Glomerular Filtration Rate Calc 14 >90 mL/min Random Glucose 179 H 70-105 mg/dL Total Calcium 9.5 8.5-10.1 mg/dL Phosphorus Level 3.6 2.5-4.9 mg/dL Hepatitis B Surface Antigen. Non-Reactive Nonreactive Hepatitis B Surface Antibody. Positive Reactive Hepatitis B Core Total Antibody. Non-Reactive Nonreactive Influenza Type A Antigen Negative For Type A NEGATIVE Influenza Type B Antigen Negative For Type B NEGATIVE SARS-CoV-2, RNA, NAAT NEGATIVE SARS CoV-2 NEGATIVE Test 12/01/24 07:08 11/30/24 17:14 Range/Units Platelet Morphology Comment DECREASED Prothrombin Time 12.6 H 9.6-11.6 SEC Prothromb Time International Ratio 1.21 H 0.85-1.15 Activated Partial Thromboplast Time 39.0 H 26.3-35.5 SEC Magnesium Level 2.30 1.80-2.40 mg/dL Total Bilirubin 0.6 0.2-1.0 mg/dL Aspartate Amino Transf (AST/SGOT) 30 10-37 U/L Alanine Aminotransferase (ALT/SGPT) 17 12-78 U/L Alkaline Phosphatase 288 H 50-136 U/L Total Protein 8.2 6.0-8.3 g/dL Albumin 2.6 L 3.5-5.0 g/dL Thyroid Stimulating Hormone (TSH) 1.30 0.36-3.74 uIU/mL White Cell Morphology Comment See comments Red Blood Cell Morphology See comments Troponin I High Sensitivity 31 4-50 ng/L Current Medications Medications (Trade) Dose Ordered Sig/Zay Route PRN Reason Start Time Stop Time Status Last Admin Dose Admin Acetaminophen (TYLenol 325MG TAB) 650 mg Q4H PRN PO MILD PAIN (1-3) 11/30/24 20:00 12/30/24 19:59 12/01/24 20:04 650 MG Acetaminophen (TYLenol 325MG TAB) 650 mg Q6H PRN PO TEMPERATURE GREATER THAN 101.5 11/30/24 20:00 12/30/24 19:59 Albuterol (DUOneb) 1 udvial [id number] IH 11/30/24 22:00 12/30/24 21:59 12/02/24 06:51 1 UDVIAL Atropine Sulfate (Atropine 1mg Syg) 1 mg ONCE IVP 11/30/24 18:30 11/30/24 18:32 DC Benzonatate (Tessalon 100mg Caps) 100 mg BID PRN PO COUGH 12/01/24 11:00 12/31/24 10:59 12/01/24 20:01 100 MG Dextrose (D50w) 50 ml AD PRN IV HYPOGLYCEMIA PROTOCOL 11/30/24 20:00 12/30/24 19:59 Dopamine HCl/ Dextrose 250 ml @ 0 mls/hr PROTOCOL STAT IV 11/30/24 18:30 11/30/24 18:35 DC 11/30/24 19:09 13 MLS/HR Famotidine (Pepcid 20mg Tab) 20 mg Q48H PO 11/30/24 20:00 12/30/24 19:59 11/30/24 19:57 20 MG Glucagon (Glucagon 1mg Kit) 1 mg AD PRN IM HYPOGLYCEMIA PROTOCOL 11/30/24 20:00 12/30/24 19:59 Insulin Human Regular (humuLIN R 100 UNIT/ML 3ML) INSULIN SLIDING SCAL... ACHS SQ 11/30/24 21:00 12/30/24 20:59 12/02/24 06:22 2 UNIT Metoprolol Tartrate (loprESSOR) 12.5 mg BID PO 12/01/24 09:00 12/31/24 08:59 12/02/24 09:24 12.5 MG Ondansetron HCl (zoFRAN 4MG INJ) 4 mg Q6H PRN IV NAUSEA/VOMITING 11/30/24 20:00 12/30/24 19:59 Sodium Chloride 1,000 ml @ 0 mls/hr ONCE IV 12/01/24 11:30 12/31/24 11:29 12/01/24 15:53 333 MLS/HR DIAGNOSTICS / RADIOLOGY: [ ] ASSESSMENT: Symptomatic bradycardia suspecting medication: Metoprolol induced POA Acute respiratory failure with out mechanical ventilation POA supecting sick sinus OA Acute anemia POA Acute thrombocytopenia POA Acute on chronic renal failure on hemodialysis POA Diabetes POA Hyperlipidemia POA Hypertension POA Ascites PLAN: The patient remains admitted to the progressive care unit Continue the patient on cardiac monitor Echocardiogram reported as normal LVEF, moderate aortic regurgitation, small to moderate size pericardial effusion, elevated RVSP and PA pressures, dilated atrium Continue to hold beta-blockers, the patient was taking metoprolol 100 mg p.o. daily, last dose was taken the night before presented to the emergency room. Continue to follow Cardiology input and recommendations. We will request IR for ultrasound-guided paracentesis tomorrow. Home medications reviewed and reconciled. NEURO: Minimize central acting medications as possible. Fall Precautions. Well lighted room through the day and minimize interruptions through the night to prevent acute delirium. PULMONARY: Supplemental 02 as needed BiPAP as necessary, for respiratory distress Titrate Fio2 to keep Spo2 > or = 90% DuoNebs and CPT as needed IS hourly while awake for pulmonary hygiene prn Out of bed to chair as tolerated Maintain aspiration precautions at all times CARDIOVASCULAR: Follow hemodynamics. Vital signs per facility protocol GI & NUTRITION: Continue nutritional support Aspirations precautions Prokinetic agents and laxatives as needed KIDNEYS & ELECTROLYTES: Strict monitoring of intake and output Daily weights Avoid nephrotoxic agents Monitor electrolytes and replace as needed Goal urine output of 30mL/hr or 0.5mL/kg/hr Medications to be dosed according to renal function. Avoid contrast if possible ENDOCRINE: Maintain blood glucose between 100-180 at all times. Insulin sliding scale for blood glucose management Hypoglycemia and hyperglycemia protocol in place INFECTIOUS DISEASE: Trend temperature, WBC and procalcitonin level Follow cultures, deescalate antibiotics as soon as possible. Panculture if new onset fever HEMATOLOGY & COAGULATION: Monitor H&H. Keep Hgb > 7 Transfuse 1 unit of PRBC for Hgb < 7 Transfuse 1 pack of platelets of platelets < 20, 000 Watch for any signs and symptoms of bleeding SKIN: Pressure ulcer prevention per facility protocol Specialty mattress as needed ORTHO/REHAB Continue PT/OT PRN: MEDICATIONS Tylenol 650 mg po every 4 hrs for fever zofran 4 mg IV every 6 hrs for n/v Hydralazine 5 mg IV every 4 hrs systolic pressure > 160 bowel regiment: lactulose 20 gm PO BID PRN constipation Supportive measures: Continue GI and DVT prophylaxis Disposition: PLAN: NEURO: Minimize central acting medications as possible. Fall Precautions. Well lighted room through the day and minimize interruptions through the night to prevent acute delirium. PULMONARY: Supplemental 02 as needed BiPAP as necessary, for respiratory distress Titrate Fio2 to keep Spo2 > or = 90% DuoNebs and CPT as needed IS hourly while awake for pulmonary hygiene prn Out of bed to chair as tolerated Maintain aspiration precautions at all times CARDIOVASCULAR: Follow hemodynamics. Vital signs per facility protocol GI & NUTRITION: Continue nutritional support Aspirations precautions Prokinetic agents and laxatives as needed KIDNEYS & ELECTROLYTES: Strict monitoring of intake and output Daily weights Avoid nephrotoxic agents Monitor electrolytes and replace as needed Goal urine output of 30mL/hr or 0.5mL/kg/hr Medications to be dosed according to renal function. Avoid contrast if possible ENDOCRINE: Maintain blood glucose between 100-180 at all times. Insulin sliding scale for blood glucose management Hypoglycemia and hyperglycemia protocol in place INFECTIOUS DISEASE: Trend temperature, WBC and procalcitonin level Follow cultures, deescalate antibiotics as soon as possible. Panculture if new onset fever HEMATOLOGY & COAGULATION: Monitor H&H. Keep Hgb > 7 Transfuse 1 unit of PRBC for Hgb < 7 Transfuse 1 pack of platelets of platelets < 20, 000 Watch for any signs and symptoms of bleeding SKIN: Pressure ulcer prevention per facility protocol Specialty mattress as needed ORTHO/REHAB Continue PT/OT PRN: MEDICATIONS Tylenol 650 mg po every 4 hrs for fever zofran 4 mg IV every 6 hrs for n/v Hydralazine 5 mg IV every 4 hrs systolic pressure > 160 bowel regiment: lactulose 20 gm PO BID PRN constipation Supportive measures: Continue GI and DVT prophylaxis Disposition: Pending improvement in clinical condition All questions answered time spent: > 35 min KAVON JACKMAN MD Dec 02, 2024 10:20
[2024-12-02] MEDS: acetaMINOPHEN 325 MG TAB PO PRN (10:37)
--- NOTE | 2024-12-02 12:05 | PN ---
SUBJECTIVE: The patient is a 59-year-old female with a history of diabetes mellitus, hypertension, has a history of end-stage renal disease, on dialysis three times per week. The patient presented to the hospital with symptomatic bradycardia. The patient was seen by Cardiology and oral medications were adjusted. The patient is feeling much improved overnight. She did receive dialysis yesterday with 3.4 L of ultrafiltration. The patient's pulmonary symptoms have greatly improved, and she is being seen for all the above. REVIEW OF SYSTEMS: GENERAL: She is feeling improved. HEENT: No change in vision. No change in hearing. CARDIOVASCULAR: No current chest pains or palpitations. PULMONARY: Shortness of breath has improved. GASTROINTESTINAL: She is tolerating diet. MUSCULOSKELETAL: Complains of weakness. PHYSICAL EXAMINATION: VITAL SIGNS: Blood pressure 145/62, pulse 80s, and afebrile. GENERAL: Chronically ill female, lying in bed on medical floor. HEENT: Head is atraumatic. Pupils equal, roving to light. Oropharynx is without exudate. Nares clear. NECK: There is no JVP. There is no thyromegaly, no mass. CARDIOVASCULAR: Regular. There is no S3, S4 gallop. LUNGS: Coarse with equal thoracic movement. ABDOMEN: Soft, nondistended, nontender. EXTREMITIES: Edema is improved. LABORATORY DATA: Hemoglobin 11, hematocrit 35, white cell count is 4000. Sodium 131, potassium 4.3, BUN 37, creatinine is 3.6. IMPRESSION: * Symptomatic bradycardia. * Known coronary artery disease. * Diabetes mellitus. * Hypertension. * ESRD. PLAN: The patient was seen by Cardiology. The patient's metoprolol has been adjusted. The patient's bradycardia has resolved. She continues with the dialysis 3 times per week. We will continue to follow the patient closely. Once the patient is discharged, the patient will follow up into dialysis unit. TID: [id number] RECEIPT: [id number]
[2024-12-02] MEDS ORDERED: LACTULOSE 20 GM/30 ML UDCUP PO PRN (12:30)
[2024-12-02 14:39] LABS: THYROID STIMULATING HORMONE 2.47 uIU/mL (0.36-3.74)
[2024-12-02] MEDS: hydrALAZine 25MG TABLET PO SCH (15:16)
--- NOTE | 2024-12-02 16:37 | NUR ---
INITIAL/DCP HOME Met w pt this afternoon to discuss dcp. Demographics confirmed. EC Dtr Oriana Farrell [phone]. Preferred pharmacy is [facility] or [facility] in [place]. Pt lives alone. She is mostly wc bound and is able to transfer independently. She requires assist w ADLS. [facility]. She has a ramp at home to enter. Family provides transportation where needed. Discharge goal is to return home. Addendum: 12/02/24 at 1640 by MIKAL MERRITT CM Amended: Links added.
--- NOTE | 2024-12-02 17:02 | HMCIMG ---
CT NONCONTRAST CHEST Comparison Study: none History: R/O PERICARDIAL EFFUSION Technique: Helical CT of the chest without IV contrast at 5 mm collimation. Coronal and sagittal reformations also done. CT Dose Index (CTDI): 2.38 mGy Dose Length Product (DLP): 94.8 total mGy-cm Findings: The airway is intact. The trachea and major bronchi are unremarkable. The chest exam shows no pulmonary nodules or masses. No significant pulmonary parenchymal abnormalities are noted. No pulmonary infiltrates or mass lesions are seen. Small right pleural effusion. There is no pneumothorax. There is no evidence of pneumomediastinum. The nonenhanced exam of the marichuy and mediastinum is unremarkable. No evidence of hilar enlargement is seen. The aorta shows no aneurysmal dilatation or significant atheromatous calcification. No significant brachiocephalic vascular abnormalities are seen. There is cardiomegaly. There is a mild pericardial effusion. Cardiac valvular and coronary arterial calcifications are seen. The rib cage appears unremarkable. The soft tissues of the chest wall are unremarkable. The dorsal spine shows no significant abnormalities. Incidentally, there is ascites and there is evidence of bilateral renal atrophy. IMPRESSION: There is cardiomegaly. There is a mild pericardial effusion. Cardiac valvular and coronary arterial calcifications are seen. Small right pleural effusion. Ascites. Renal atrophy. This study was performed using dose reduction techniques to include automated exposure control and/or adjustment of the mA and/or kV according to patient size.
[2024-12-02] MEDS: sevELAMer HCL 800 MG TABLET PO SCH (17:13)
[2024-12-02] MEDS: SUCRALFATE 1 GM TABLET PO SCH (17:13)
[2024-12-02] MEDS: INSULIN LISpro 100 UNIT/ML 3ML SQ SCH (17:13)
[2024-12-02] MEDS: INSULIN GLARgine 100 UNITS/ML 10 ML VIAL SQ SCH (20:28)
[2024-12-02] MEDS: atorVAStatin 40 MG TABLET PO SCH (21:02)
[2024-12-02] MEDS: LATANOPROST 2.5 ML DROPS OS SCH (21:07)
[2024-12-03] VITALS (25 sets, daily range): BP systolic 110–155; BP diastolic 51–70; PULSE 69–91; RESP 14–20; TEMP 97.4–98.3; O2SAT 94–97
[2024-12-03 05:35] LABS: HEMATOCRIT 33.7 % (36-48); MEAN CORPUSCULAR HEMOGLOBIN 31.2 pg (27.0-33.0); MEAN CORPUSCULAR HGB CONC 30.9 g/dL (32.0-36.0); MEAN CORPUSCULAR VOLUME 101.2 fL (79-99); RED BLOOD CELL COUNT(AUTO) 3.33 MIL/uL (4.00-5.50); RED CELL DISTRIBUTION WIDTH 16.6 % (11.0-15.5); WHITE BLOOD COUNT (AUTO) 5.2 K/uL (4.8-10.8)
[2024-12-03 05:51] LABS: ALBUMIN 2.7 g/dL (3.5-5.0); BILIRUBIN,TOTAL 0.6 mg/dL (0.2-1.0); CREATININE 4.5 mg/dL (0.5-1.0); MAGNESIUM 1.9 mg/dL (1.80-2.40); POTASSIUM 4.6 mmol/L (3.5-5.1); TOTAL PROTEIN, SERUM 8.6 g/dL (6.0-8.3)
--- NOTE | 2024-12-03 08:52 | PN ---
[facility] PROGRESS NOTE Date of Service: Dec 03, 2024 Time of Service: 08:50 SUBJECTIVE: [ ] This is a 59 year old female Togolese speaking with past medical history of Hypertension, hyperlipidemia, end-stage renal disease on hemodialysis MWF , liver cirrhosis, renal transplant which has failed, diabetic retinopathy with loss of vision of the right eye, coronary artery disease who was brought by EMS to the ED from hemodialysis center for complaints of feeling weak and low BP and her HR was in the 30's ,thus prompted this admission. Patient stated she was not hemodialyzed for above reasons. Patient stated she is taking Metoprolol 100mg po daily and last dose taken was the night before her hemodialysis session. Patient admitted to the progressive care unit for further evaluation and medical management. Patient remains stable, blood pressure 145/62, afebrile, saturating normal on room air, heart rate controlled at 86. Noted to have mild abdominal distention, she stated that she gets paracentesis on a regular basis. Echocardiogram reported as normal LVEF, moderate aortic regurgitation, small to moderate size pericardial effusion, elevated RVSP and PA pressures, dilated atrium 12/03 patient is seen and examined at bedside, case discussed with the RN, no acute events overnight, patient remains hemodynamically stable, afebrile, saturating normal on room air. Patient is scheduled for hemodialysis today, as well as possible paracentesis by IR. REVIEW OF SYSTEMS CONSTITUTIONAL: Denies fevers, chills, or night sweats. No unintentional weight loss reported. NEUROLOGICAL: Complain of generalized body weakness, dizziness Denies headache, amaurosis fugax, sensory deficit, gait abnormalities, or tremors. ENT: No hearing loss, otalgia, otorrhea, rhinitis, rhinorrhea, hoarseness, or sore throat. CARDIOVASCULAR: Denies any exertional angina, dyspnea on exertion, orthopnea, paroxysmal nocturnal dyspnea, palpitations, life-threatening arrhythmias, claudication. PULMONARY: Complain of mild shortness of breaths Denies cough, phlegm/sputum, hemoptysis, pleuritic chest pain. SLEEP: Denies morning headaches, daytime somnolence or napping. Denies difficulty falling asleep, staying asleep, waking from sleep. Denies knowledge of snoring. GASTROINTESTINAL: Denies any type of dysphagia to either liquids or solids. Denies nausea, vomiting, pyrosis, early satiety, abdominal pain, diarrhea, constipation, or changes in stool consistency or caliber. Denies coffee-ground emesis, hematemesis, hematochezia, or melanotic stools. GENITOURINARY: Denies frequency, urgency, nocturia, hematuria or incontinence (Storage/Irritative symptoms.) Low urinary stream, straining to void, urinary intermittency or hesitancy, splitting of the voiding stream, terminal dribbling. ENDOCRINOLOGIC: Denies polyuria, polydipsia, polyphagia or heat/cold intolerances. HEMATOLOGIC: Denies thrombophilia/previous clots, or coagulopathy/bleeding disorders. ONCOLOGIC: Denies personal history of malignancy. DERMATOLOGIC: Denies rashes or pruritus. PSYCHIATRIC: Denies any suicidal or homicidal ideation. Denies hallucinations. PHYSICAL EXAM GENERAL APPEARANCE: The patient is awake, alert, and oriented, in no acute cardiopulmonary distress. NEUROLOGICAL: Cranial nerves II-XII grossly intact. Motor is 5/5 in bilateral upper and lower extremities proximal to distal. No sensory deficits. HEENT: Face is symmetric. Pupils are equal and reactive. Extraocular movements are intact. NECK: Supple. No JVD. No thyromegaly. No submental, submandibular, pre-/pos tauricular, occipital or supraclavicular lymphadenopathy. CHEST: Normal chest expansion. + Telemetry. LUNGS: Absence of any rales, rhonchi or any wheezing. CARDIOVASCULAR: Bradycardic Regular. S1 and S2 normal. No appreciable rubs, murmurs or gallops. ABDOMEN: Mild ascites noted : Deferred. No Prieto. EXTREMITIES: Non-edematous and not cyanotic. No clubbing. Good capillary refill. SKIN: No skin breakdown. Vital Signs (last 8hr) Date Time Temp Pulse Resp B/P (MAP) Pulse Ox O2 Delivery O2 Flow Rate FiO2 12/03/24 07:56 95 Nasal Cannula* 2 28 12/03/24 07:00 98.2 76 17 142/60 92 Room Air 12/03/24 06:28 74 18 12/03/24 06:27 74 18 N/Cannula Low lpm 1.0 24 12/03/24 03:29 98.1 83 20 140/70 95 Nasal Cannula 2.0 12/03/24 01:47 72 18 LABS: Laboratory: Test 12/03/24 05:04 12/03/24 05:00 12/02/24 20:27 12/02/24 04:28 Range/Units Whole Blood Glucose 194 H 70-110 MG/DL White Blood Count 5.2 4.8-10.8 K/uL Red Blood Count 3.33 L 4.00-5.50 MIL/uL Hemoglobin 10.4 L 12.0-16.0 g/dL Hematocrit 33.7 L 36-48 % Mean Corpuscular Volume 101.2 H 79-99 fL Mean Corpuscular Hemoglobin 31.2 27.0-33.0 pg Mean Corpuscular Hemoglobin Concent 30.9 L 32.0-36.0 g/dL Red Cell Distribution Width 16.6 H 11.0-15.5 % Platelet Count 78 L 130-400 K/uL Mean Platelet Volume 10.4 7.5-10.5 fL Nucleated Red Blood Cells 0.0 0.0-0.19 % Sodium Level 134 L 136-145 mmol/L Potassium Level 4.6 3.5-5.1 mmol/L Chloride Level 97 L 101-111 mmol/L Carbon Dioxide Level 29 21-32 mmol/L Blood Urea Nitrogen 57 H 7-18 mg/dL Creatinine 4.5 H 0.5-1.0 mg/dL Glomerular Filtration Rate Calc 11 >90 mL/min Random Glucose 191 H 70-105 mg/dL Total Calcium 9.5 8.5-10.1 mg/dL Magnesium Level 1.90 1.80-2.40 mg/dL Total Bilirubin 0.6 0.2-1.0 mg/dL Aspartate Amino Transf (AST/SGOT) 34 10-37 U/L Alanine Aminotransferase (ALT/SGPT) 20 12-78 U/L Alkaline Phosphatase 301 H 50-136 U/L Total Protein 8.6 H 6.0-8.3 g/dL Albumin 2.7 L 3.5-5.0 g/dL Bedside Glucose Comment Notified Nurse Immature Granulocyte % (Auto) 0.2 0-1 % Neutrophils (%) (Auto) 62.9 40.0-77.0 % Lymphocytes (%) (Auto) 18.4 L 21.0-51.0 % Monocytes (%) (Auto) 7.4 3.0-13.0 % Eosinophils (%) (Auto) 10.0 H 0.0-8.0 % Basophils (%) (Auto) 1.1 0.0-5.0 % Neutrophils # (Auto) 3.0 1.8-7.7 K/uL Lymphocytes # (Auto) 0.9 L 1.0-4.8 K/uL Monocytes # (Auto) 0.4 0.1-1.0 K/uL Eosinophils # (Auto) 0.47 0.00-0.70 K/uL Basophils # (Auto) 0.05 0.00-0.20 K/uL Absolute Immature Granulocyte (auto 0.01 0-1 K/uL Phosphorus Level 3.6 2.5-4.9 mg/dL Thyroid Stimulating Hormone (TSH) 2.47 # 0.36-3.74 uIU/mL Free Thyroxine (T4) Direct 1.29 0.76-1.46 ng/dL Test 12/01/24 14:28 12/01/24 12:24 Range/Units Hepatitis B Surface Antigen. Non-Reactive Nonreactive Hepatitis B Surface Antibody. Positive Reactive Hepatitis B Core Total Antibody. Non-Reactive Nonreactive Influenza Type A Antigen Negative For Type A NEGATIVE Influenza Type B Antigen Negative For Type B NEGATIVE SARS-CoV-2, RNA, NAAT NEGATIVE SARS CoV-2 NEGATIVE Current Medications Medications (Trade) Dose Ordered Sig/Zay Route PRN Reason Start Time Stop Time Status Last Admin Dose Admin Acetaminophen (TYLenol 325MG TAB) 650 mg Q4H PRN PO MILD PAIN (1-3) 11/30/24 20:00 12/30/24 19:59 12/03/24 07:18 650 MG Acetaminophen (TYLenol 325MG TAB) 650 mg Q6H PRN PO TEMPERATURE GREATER THAN 101.5 11/30/24 20:00 12/30/24 19:59 12/02/24 10:37 650 MG Albuterol (DUOneb) 1 udvial [id number] IH 11/30/24 22:00 12/30/24 21:59 12/03/24 06:25 1 UDVIAL Aspirin (Aspirin 81mg Chew Tab) 81 mg DAILY PO 12/03/24 09:00 01/02/25 08:59 Atorvastatin Calcium (LIPItor 40MG) 40 mg HS PO 12/02/24 21:00 01/01/25 20:59 12/02/24 21:02 40 MG Atropine Sulfate (Atropine 1mg Syg) 1 mg ONCE IVP 11/30/24 18:30 11/30/24 18:32 DC Benzonatate (Tessalon 100mg Caps) 100 mg BID PRN PO COUGH 12/01/24 11:00 12/31/24 10:59 12/01/24 20:01 100 MG Dextrose (D50w) 50 ml AD PRN IV HYPOGLYCEMIA PROTOCOL 11/30/24 20:00 12/30/24 19:59 Dopamine HCl/ Dextrose 250 ml @ 0 mls/hr PROTOCOL STAT IV 11/30/24 18:30 11/30/24 18:35 DC 11/30/24 19:09 13 MLS/HR Famotidine (Pepcid 20mg Tab) 20 mg Q48H PO 11/30/24 20:00 12/02/24 12:14 DC 11/30/24 19:57 20 MG Famotidine (Pepcid 20mg Tab) 20 mg Q48H PO 12/03/24 09:00 01/02/25 08:59 Ferrous Sulfate (Ferrous Sulfate) 325 mg DAILY PO 12/03/24 09:00 01/02/25 08:59 Folic Acid (FOLic ACID 1 MG TABLET) 1 mg DAILY PO 12/03/24 09:00 01/02/25 08:59 Glucagon (Glucagon 1mg Kit) 1 mg AD PRN IM HYPOGLYCEMIA PROTOCOL 11/30/24 20:00 12/30/24 19:59 Home Med (Home Medication) (Tacrolimus (Astagraf Xl) 1... DAILY PO 12/03/24 09:00 01/02/25 08:59 Home Med (Home Medication) (Tacrolimus (Astagraf Xl) 5... DAILY PO 12/03/24 09:00 01/02/25 08:59 Home Med (Home Medication) Cholecalciferol (Vitamin D3) 125 MCG DAILY PO 12/03/24 09:00 01/02/25 08:59 Hydralazine HCl ([id number] TAB) 75 mg TID PO 12/02/24 14:00 01/01/25 13:59 12/02/24 21:02 75 MG Insulin Glargine (LANtus 100 UNITS/ML 10 ML VIAL) 55 units HS SQ 12/02/24 21:00 01/01/25 20:59 Insulin Human Lispro (HumaLOG LISpro 100 UNIT/ML 3ML) 10 unit TIDAC SQ 12/02/24 17:00 01/01/25 16:59 12/02/24 17:13 10 UNIT Insulin Human Regular (humuLIN R 100 UNIT/ML 3ML) INSULIN SLIDING SCAL... ACHS SQ 11/30/24 21:00 12/30/24 20:59 12/03/24 07:15 2 UNIT Isosorbide Mononitrate (Imdur 30mg Sr) 30 mg DAILY PO 12/03/24 09:00 01/02/25 08:59 Lactulose (Constulose 20gm/ 30ml Udcup) 10 gm DAILY PRN PO CONSTIPATION 12/02/24 12:30 01/01/25 12:29 Latanoprost (Xalatan) 1 DROP HS OS 12/02/24 21:00 01/01/25 20:59 12/02/24 21:07 1 DROP Metoprolol Tartrate (loprESSOR) 12.5 mg BID PO 12/01/24 09:00 12/31/24 08:59 12/02/24 21:02 12.5 MG Ondansetron HCl (zoFRAN 4MG INJ) 4 mg Q6H PRN IV NAUSEA/VOMITING 11/30/24 20:00 12/30/24 19:59 Prednisone (deltaSONE/ oraSONE 5MG) 5 mg DAILY PO 12/03/24 09:00 01/02/25 08:59 Sevelamer HCl (RENAgel 800 MG TAB) 800 mg TIDMEALS PO 12/02/24 17:00 01/01/25 16:59 12/02/24 17:13 800 MG Sodium Chloride 1,000 ml @ 0 mls/hr ONCE IV 12/01/24 11:30 12/31/24 11:29 12/01/24 15:53 333 MLS/HR Sucralfate (Carafate) 1 gm BIDMEALS PO 12/02/24 17:00 01/01/25 16:59 12/02/24 17:13 1 GM Vitamin B Complex (Vitamin B-12) 1,000 mcg DAILY PO 12/03/24 09:00 01/02/25 08:59 Vitamin B Complex/ Vit C/Folic Acid (Nephrovite Tablet) 1 cap DAILY PO 12/03/24 09:00 5/14/25 08:59 DIAGNOSTICS / RADIOLOGY: [ ] ASSESSMENT: Symptomatic bradycardia suspecting medication: Metoprolol induced POA Acute respiratory failure with out mechanical ventilation POA supecting sick sinus OA Acute anemia POA Acute thrombocytopenia POA Acute on chronic renal failure on hemodialysis POA Diabetes POA Hyperlipidemia POA Hypertension POA Ascites PLAN: The patient remains admitted to the progressive care unit Continue the patient on desk monitor Echocardiogram reported as normal LVEF, moderate aortic regurgitation, small to moderate size pericardial effusion, elevated RVSP and PA pressures, dilated atrium Continue to hold beta-blockers, the patient was taking metoprolol 100 mg p.o. daily, last dose was taken the night before presented to the emergency room. Patient is seen for hemodialysis today care, and possible paracentesis by IR. Close monitoring of the patient's blood pressure. Anticipate discharge home in the next 24 hours. NEURO: Minimize central acting medications as possible. Fall Precautions. Well lighted room through the day and minimize interruptions through the night to prevent acute delirium. PULMONARY: Supplemental 02 as needed BiPAP as necessary, for respiratory distress Titrate Fio2 to keep Spo2 > or = 90% DuoNebs and CPT as needed IS hourly while awake for pulmonary hygiene prn Out of bed to chair as tolerated Maintain aspiration precautions at all times CARDIOVASCULAR: Follow hemodynamics. Vital signs per facility protocol GI & NUTRITION: Continue nutritional support Aspirations precautions Prokinetic agents and laxatives as needed KIDNEYS & ELECTROLYTES: Strict monitoring of intake and output Daily weights Avoid nephrotoxic agents Monitor electrolytes and replace as needed Goal urine output of 30mL/hr or 0.5mL/kg/hr Medications to be dosed according to renal function. Avoid contrast if possible ENDOCRINE: Maintain blood glucose between 100-180 at all times. Insulin sliding scale for blood glucose management Hypoglycemia and hyperglycemia protocol in place INFECTIOUS DISEASE: Trend temperature, WBC and procalcitonin level Follow cultures, deescalate antibiotics as soon as possible. Panculture if new onset fever HEMATOLOGY & COAGULATION: Monitor H&H. Keep Hgb > 7 Transfuse 1 unit of PRBC for Hgb < 7 Transfuse 1 pack of platelets of platelets < 20, 000 Watch for any signs and symptoms of bleeding SKIN: Pressure ulcer prevention per facility protocol Specialty mattress as needed ORTHO/REHAB Continue PT/OT PRN: MEDICATIONS Tylenol 650 mg po every 4 hrs for fever zofran 4 mg IV every 6 hrs for n/v Hydralazine 5 mg IV every 4 hrs systolic pressure > 160 bowel regiment: lactulose 20 gm PO BID PRN constipation Supportive measures: Continue GI and DVT prophylaxis Disposition: PLAN: NEURO: Minimize central acting medications as possible. Fall Precautions. Well lighted room through the day and minimize interruptions through the night to prevent acute delirium. PULMONARY: Supplemental 02 as needed BiPAP as necessary, for respiratory distress Titrate Fio2 to keep Spo2 > or = 90% DuoNebs and CPT as needed IS hourly while awake for pulmonary hygiene prn Out of bed to chair as tolerated Maintain aspiration precautions at all times CARDIOVASCULAR: Follow hemodynamics. Vital signs per facility protocol GI & NUTRITION: Continue nutritional support Aspirations precautions Prokinetic agents and laxatives as needed KIDNEYS & ELECTROLYTES: Strict monitoring of intake and output Daily weights Avoid nephrotoxic agents Monitor electrolytes and replace as needed Goal urine output of 30mL/hr or 0.5mL/kg/hr Medications to be dosed according to renal function. Avoid contrast if possible ENDOCRINE: Maintain blood glucose between 100-180 at all times. Insulin sliding scale for blood glucose management Hypoglycemia and hyperglycemia protocol in place INFECTIOUS DISEASE: Trend temperature, WBC and procalcitonin level Follow cultures, deescalate antibiotics as soon as possible. Panculture if new onset fever HEMATOLOGY & COAGULATION: Monitor H&H. Keep Hgb > 7 Transfuse 1 unit of PRBC for Hgb < 7 Transfuse 1 pack of platelets of platelets < 20, 000 Watch for any signs and symptoms of bleeding SKIN: Pressure ulcer prevention per facility protocol Specialty mattress as needed ORTHO/REHAB Continue PT/OT PRN: MEDICATIONS Tylenol 650 mg po every 4 hrs for fever zofran 4 mg IV every 6 hrs for n/v Hydralazine 5 mg IV every 4 hrs systolic pressure > 160 bowel regiment: lactulose 20 gm PO BID PRN constipation Supportive measures: Continue GI and DVT prophylaxis Disposition: Pending improvement in clinical condition All questions answered time spent: > 35 min KAVON JACKMAN MD Dec 03, 2024 08:51
[2024-12-03] MEDS: Cholecalciferol (Vitamin D3) 125 MCG PO SCH (09:00)
[2024-12-03] MEDS: TACROLIMUS 1 MG PO SCH (09:00)
[2024-12-03] MEDS: TACROLIMUS 5 MG PO SCH (09:00)
--- NOTE | 2024-12-03 09:00 | NUR ---
U/S GD PARACENTESIS NOT DONE U/S PERFORMED BY DR Danielito ARMENDARIZ [facility]. IMAGES REVIEWED BY DR Fracisco SUAZO. NOT ENOUGH FLUID TO SAFELY PERFORM PROCEDURE. Opal ARGUELLO RN NOTIFIED. PT INFORMED OF OUTCOME. VERBALIZED UNDERSTANDING. TRANSPORTED VIA BED TO [facility]. A&O. DENIES PAIN.
[2024-12-03] MEDS: FOLic ACID 1 MG TABLET PO SCH (09:01)
[2024-12-03] MEDS: predniSONE 5 MG TABLET PO SCH (09:01)
[2024-12-03] MEDS: CYANOCOBALAMIN (VITAMIN B-12) 1,000 MCG TABLET PO SCH (09:01)
[2024-12-03] MEDS: Vitamin B Complex/Vit C/Folic Acid PO SCH (09:01)
[2024-12-03] MEDS: FAMOTIDINE 20MG TAB PO SCH (09:01)
[2024-12-03] MEDS: ISOSORBIDE MONO 30MG SR TAB PO SCH (09:01)
[2024-12-03] MEDS: FERROUS SULFATE 325 MG TABLET.DR PO SCH (09:01)
[2024-12-03] MEDS: ASPIRIN 81MG CHEW TAB PO SCH (09:03)
--- NOTE | 2024-12-03 09:44 | PN ---
DIALYSIS NOTE SUBJECTIVE: The patient was seen and evaluated, on hemodialysis, prescription noted. OBJECTIVE: VITAL SIGNS: Blood pressure 142/60. CARDIOVASCULAR: Regular. LUNGS: Coarse. IMPRESSION: End-stage renal disease. PLAN: The patient will continue with maximal ultrafiltration as blood pressure allows. Once the patient is discharged, the patient can follow up in the Renal Clinic. TID: [id number] RECEIPT: [id number]
--- NOTE | 2024-12-03 10:09 | HMCIMG ---
Ascites SCAN History: Abdominal distention FINDINGS: There is a minimal amount of ascitic fluid. It is not enough for ultrasound-guided paracentesis. IMPRESSION: Minimal ascites, not enough for ultrasound-guided paracentesis.
[2024-12-03] MEDS: DEXTROSE 50%-WATER 50 ML DISP.SYRIN IV PRN (11:38)
[2024-12-03] MEDS ORDERED: METO25 PO (13:18)
--- NOTE | 2024-12-03 16:39 | PN ---
[facility] PROGRESS NOTE Date Patient Seen: Dec 03, 2024 Time of Visit: 16:38 Supervising Physician: Dr. Delcid Primary Care Physician: [ Dr. Jameel Carr] Outpatient Specialists: [Dr. Roach, Dr. Hopper-cardiology] Inpatient Consults: [ Dr. Roach, Dr. Grande-cardiology] PROBLEM LIST: Severe symptomatic bradycardia requiring Dopamine drip-POA resolved Symptomatic hypotension-POA resolved Missed dialysis due to symptomatic hypotension-POA ESRD-HD MWF Primary HTN Prior renal transplant with failure Anemia of chronic disease Thrombocytopenia Liver cirrhosis Plan Summary: Supplemental oxygen as needed Wean off as tolerated Telemetry monitoring Strict I&Os Daily weights HD as per Nephrology Continue metoprolol Follow cardio recs Dispo: As per attending INTERVAL HISTORY: 12/01/2024: At the time of my evaluation, the patient is lying in bed. The staff nurse reports no acute events overnight. On the monitor, the patient is NSR and is currently off dopamine drip. She reports feeling much better today. Laboratory data today, was notable for a potassium of 5.9, BUN of 56, creatinine of 4.8 and a GFR of 10. Hemodialysis nurse present at the bedside. No other complaint. 12/02 - patient was transferred out of ICU where she was being cared for secondary to severe symptomatic bradycardia requiring dopamine drip. Patient has been off dopamine drip for24 hours and patient's heart rate and blood pressure remained stable. No acute changes reported overnight. Patient is seen sitting up in bed does not appear to be in any acute distress at this time. Patient is currently on room air and denies dyspnea. Patient had hemodialysis yesterday with 3.5 L removed. Patient was evaluated by Cardiology and recommend continue low-dose metoprolol 12.5 mg b.i.d.., resume hydralazine and isosorbide to optimize blood pressure. From a pulmonary standpoint, patient is stable. 12/03/2024: At the time of my evaluation, the patient was lying in bed. She was undergoing hemodialysis as scheduled. During my visit, the staff nurse obtained a blood glucose check and this was found to be in the 30s. Vital sign was otherwise hemodynamically stable. Laboratory data today was notable for a sodium of 134, chloride 97, BUN 57, creatinine 4.5 and a GFR of 11. No new complaint. REVIEW OF SYSTEMS: 12 point ROS reviewed with patient. Pertinent positives mentioned above. Otherwise negative. PHYSICAL EXAM: GENERAL: alert, weak, awake oriented x 3 HEENT: EOMI, Sclera non icteric, moist mucosa NECK: Supple, no JVD, trachea midline LUNGS: Clear breath sounds bilaterally. No wheezes HEART: Regular rate and rhythm. Normal S1 and S2, without murmurs ABD: Abdomen soft, nontender. Bowel sounds present EXT: No clubbing cyanosis or edema, LAVA (+) thrill and bruit NEURO: Alert and oriented to person, follows commands Vital Signs (last 8hr) Date Time Temp Pulse Resp B/P (MAP) Pulse Ox O2 Delivery O2 Flow Rate FiO2 12/03/24 14:09 86 18 12/03/24 12:30 97.7 85 14 110/57 Room Air 12/03/24 12:15 85 14 129/61 Room Air 12/03/24 12:00 86 14 118/58 Room Air 12/03/24 11:45 86 14 125/60 Room Air 12/03/24 11:30 91 14 155/68 Room Air 12/03/24 11:15 87 14 123/60 Room Air 12/03/24 11:00 87 14 134/59 Room Air 12/03/24 11:00 97.5 87 18 119/59 95 Room Air 12/03/24 10:45 86 14 123/58 Room Air 12/03/24 10:37 85 18 12/03/24 10:36 85 18 N/A Room Air 21 12/03/24 10:30 86 14 114/56 Room Air 12/03/24 10:15 87 14 113/52 Room Air 12/03/24 10:00 87 14 118/51 Room Air 12/03/24 09:45 86 14 113/52 Room Air 12/03/24 09:30 90 14 121/58 Room Air 12/03/24 09:20 97.3 74 14 125/53 Room Air 12/03/24 08:50 97.3 69 14 122/54 Room Air LABS: Hematology Labs: Test 12/03/24 05:00 12/02/24 04:28 Range/Units White Blood Count 5.2 4.8-10.8 K/uL Red Blood Count 3.33 L 4.00-5.50 MIL/uL Hemoglobin 10.4 L 12.0-16.0 g/dL Hematocrit 33.7 L 36-48 % Mean Corpuscular Volume 101.2 H 79-99 fL Mean Corpuscular Hemoglobin 31.2 27.0-33.0 pg Mean Corpuscular Hemoglobin Concent 30.9 L 32.0-36.0 g/dL Red Cell Distribution Width 16.6 H 11.0-15.5 % Platelet Count 78 L 130-400 K/uL Mean Platelet Volume 10.4 7.5-10.5 fL Nucleated Red Blood Cells 0.0 0.0-0.19 % Immature Granulocyte % (Auto) 0.2 0-1 % Neutrophils (%) (Auto) 62.9 40.0-77.0 % Lymphocytes (%) (Auto) 18.4 L 21.0-51.0 % Monocytes (%) (Auto) 7.4 3.0-13.0 % Eosinophils (%) (Auto) 10.0 H 0.0-8.0 % Basophils (%) (Auto) 1.1 0.0-5.0 % Neutrophils # (Auto) 3.0 1.8-7.7 K/uL Lymphocytes # (Auto) 0.9 L 1.0-4.8 K/uL Monocytes # (Auto) 0.4 0.1-1.0 K/uL Eosinophils # (Auto) 0.47 0.00-0.70 K/uL Basophils # (Auto) 0.05 0.00-0.20 K/uL Absolute Immature Granulocyte (auto 0.01 0-1 K/uL Chemistry Labs: Test 12/03/24 15:15 12/03/24 11:28 12/03/24 05:00 12/02/24 04:28 Range/Units Whole Blood Glucose 280 #H 70-110 MG/DL Bedside Glucose Comment Notified Nurse Sodium Level 134 L 136-145 mmol/L Potassium Level 4.6 3.5-5.1 mmol/L Chloride Level 97 L 101-111 mmol/L Carbon Dioxide Level 29 21-32 mmol/L Blood Urea Nitrogen 57 H 7-18 mg/dL Creatinine 4.5 H 0.5-1.0 mg/dL Glomerular Filtration Rate Calc 11 >90 mL/min Random Glucose 191 H 70-105 mg/dL Total Calcium 9.5 8.5-10.1 mg/dL Magnesium Level 1.90 1.80-2.40 mg/dL Total Bilirubin 0.6 0.2-1.0 mg/dL Aspartate Amino Transf (AST/SGOT) 34 10-37 U/L Alanine Aminotransferase (ALT/SGPT) 20 12-78 U/L Alkaline Phosphatase 301 H 50-136 U/L Total Protein 8.6 H 6.0-8.3 g/dL Albumin 2.7 L 3.5-5.0 g/dL Phosphorus Level 3.6 2.5-4.9 mg/dL Thyroid Stimulating Hormone (TSH) 2.47 # 0.36-3.74 uIU/mL Free Thyroxine (T4) Direct 1.29 0.76-1.46 ng/dL DIAGNOSTICS / RADIOLOGY RESULTS: [ ] PLAN 12/03/2024: For now, we are going to continue current management for the patient. She will complete hemodialysis as planned. We will treat the hypoglycemia per the protocol. Based on the primary team, the plan is to discharge the patient home today if okay with the Cardiology team. No objection for discharge if blood glucose stabilizes and Cardiology clears the patient. NEURO: Minimize central acting medications as possible. Maintain fall precautions, adequate lighting during the day PULMONARY: Supplemental 02 as needed. Maintain aspiration precautions at all times CARDIOVASCULAR: Follow hemodynamics. Vital signs per facility protocol GI & NUTRITION: Continue with nutritional support. Continue stool softeners and laxatives as needed. KIDNEYS & ELECTROLYTES: Strict monitoring of intake, output and overall fluid balance. Avoid nephrotoxic medications to the extent possible. Medications to be dosed according to renal function. Monitor electrolytes and replace as needed ENDOCRINE: Maintain blood glucose between 100-180 at all times. Hypoglycemia protocol in place INFECTIOUS DISEASE: Trend temperature, WBC and procalcitonin level Follow cultures, deescalate antibiotics as soon as possible. Panculture if new onset fever ONCOLOGY/HEMATOLOGY/COAGULATION: Monitor for s/s of bleeding Monitor hemoglobin, coagulation studies as needed SKIN: Pressure ulcer prevention per facility protocol Specialty mattress ORTHO/REHAB: Continue PT/OT Prophylaxis: Continue GI and DVT prophylaxis Code Status: Full Resuscitation Disposition: As per attending Other: Total patient care time: 35 minutes DWAIN ESPINOZA NP Dec 03, 2024 16:39
--- NOTE | 2024-12-04 04:37 | PN ---
CARDIOLOGY PROGRESS REPORT LOCATION: She is in room 223. SUBJECTIVE: This 59-year-old lady was brought to the Emergency room from dialysis on 11/30/2024 because of weakness, not being able to undergo dialysis. She had no other complaints. Her initial vital signs revealed a blood pressure of 96/39, heart rate 39 in the Emergency Room. By the time, her electrocardiogram was recorded, her heart rate was 45. The original Cardiology consultation was done by Dr. Grande. The patient's metoprolol dose was decreased to 25 mg daily. An echocardiogram was performed demonstrating normal ejection fraction of 55%. The right ventricular systolic pressure was significantly elevated at 132 mmHg. The patient does have known severe pulmonary hypertension, undergoing right heart catheterization by me in 01/2023. PAST CARDIAC HISTORY: The patient does have known coronary artery disease, undergoing angioplasty and stenting of the right coronary artery in 2018 and angioplasty plus stenting of the right coronary artery in addition to the circumflex in 2021. The patient did undergo dialysis today without difficulty. PHYSICAL EXAMINATION: VITAL SIGNS: Blood pressure 110/57, heart rate 85. IMPRESSION: The patient is doing well and is stable. PLAN: The patient can be discharged with followup with me in 2 weeks. The decreased dose of metoprolol will continue. TID: [id number] RECEIPT: [id number]
--- NOTE | 2024-12-04 07:34 | DS ---
Discharge Summary Hospital Course Summary: This is a 59 year old female [place] speaking with past medical history of Hypertension, hyperlipidemia, end-stage renal disease on hemodialysis MWF , liver cirrhosis, renal transplant which has failed, diabetic retinopathy with loss of vision of the right eye, coronary artery disease who was brought by EMS to the ED from hemodialysis center for complaints of feeling weak and low BP and her HR was in the 30's ,thus prompted this admission. Patient stated she was not hemodialyzed for above reasons. Patient stated she is taking Metoprolol 100mg po daily and last dose taken was the night before her hemodialysis session. Patient admitted to the progressive care unit for further evaluation and medical management. Patient remains stable, blood pressure 145/62, afebrile, saturating normal on room air, heart rate controlled at 86. Noted to have mild abdominal distention, she stated that she gets paracentesis on a regular basis. Echocardiogram reported as normal LVEF, moderate aortic regurgitation, small to moderate size pericardial effusion, elevated RVSP and PA pressures, dilated atrium During the course of the hospitalization the patient was evaluated by warehouse team leader, the patient's home dose of metoprolol succinate was decreased from 100 mg p.o. daily and changed to metoprolol tartrate 12.5 mg p.o. b.i.d.. Patient remains hemodynamically stable, heart rate controlled. Intervention radiologist consulted for possible therapeutic paracentesis, however per my discussion with the RN, not enough fluid to perform paracentesis. The patient to be discharged home. PHYSICAL EXAM GENERAL APPEARANCE: The patient is awake, alert, and oriented, in no acute cardiopulmonary distress. NEUROLOGICAL: Cranial nerves II-XII grossly intact. Motor is 5/5 in bilateral upper and lower extremities proximal to distal. No sensory deficits. HEENT: Face is symmetric. Pupils are equal and reactive. Extraocular movements are intact. NECK: Supple. No JVD. No thyromegaly. No submental, submandibular, pre- /postauricular, occipital or supraclavicular lymphadenopathy. CHEST: Normal chest expansion. + Telemetry. LUNGS: Absence of any rales, rhonchi or any wheezing. CARDIOVASCULAR: Bradycardic Regular. S1 and S2 normal. No appreciable rubs, murmurs or gallops. ABDOMEN: Mild ascites noted : Deferred. No Prieto. EXTREMITIES: Non-edematous and not cyanotic. No clubbing. Good capillary refill. SKIN: No skin breakdown. Painting And Coating Worker(s): Cardiology, Nephrology, critical Care. Assessment/Plan: Final Diagnosis Symptomatic bradycardia suspecting medication: Metoprolol induced POA Acute respiratory failure with out mechanical ventilation POA supecting sick sinus OA Acute anemia POA Acute thrombocytopenia POA Acute on chronic renal failure on hemodialysis POA Diabetes POA Hyperlipidemia POA Hypertension POA Ascites Discharge Instructions: Patient to follow up with her primary care physician as an outpatient and to return to the hospital for condition changes. Patient agreed with plan and understood the information provided. Home Medications: Active Scripts Metoprolol Tartrate (Lopressor) 25 Mg Tab, 12.5 MG PO BID for 30 Days, #30 TAB 1 Refill Prov:KAVON JACKMAN MD 12/03/24 Reported Medications Sucralfate (Sucralfate) 1 Gram Tablet, 1 GM PO BIDMEALS, TAB 12/01/24 Lidocaine/Prilocaine (Lidocaine-Prilocaine Cream) 2.5 %-2.5 % Kit, 1 EACH TP AD PRN for DIALYSIS, KIT 12/01/24 Insulin Aspart (Novolog Flexpen) 100 Unit/Ml (3 Ml) Insuln.pen, 10 UNITS SQ TIDAC, SYRINGE 12/01/24 Mecobalamin (B12 Active) 1,000 Mcg Tab.chew, 1000 MCG PO DAILY, TAB.CHEW 12/01/24 Latanoprost (Latanoprost) 0.005 % Drops, 1 DROP OS HS, ML 0 Refills 08/20/24 Tacrolimus (Astagraf Xl) 5 Mg Cap.er.24h, 5 MG PO DAILY, CAPSULE. 08/19/24 Folic Acid/Vitamin B Comp W-C (Michelle-Mack Tablet) 0.8 Mg Tablet, 1 MG PO DAILY, TAB 08/19/24 Ferrous Sulfate (Ferrous Sulfate) 325 Mg (65 Mg Iron) Ectab, 325 MG PO DAILY, TAB.EC 08/19/24 Cholecalciferol (Vitamin D3) (Vitamin D3) 125 Mcg (5000 Unit) Tab.rapdis, 125 MCG PO DAILY, TAB 08/19/24 Famotidine (Famotidine) 20 Mg Tablet, 20 MG PO DAILY, TAB 08/19/24 Hydralazine HCl (Hydralazine HCl) 50 Mg Tablet, 75 MG PO TID, TAB 08/19/24 Folic Acid (Folic Acid) 0.8 Mg Capsule, 1 MG PO DAILY, CAP 08/19/24 Atorvastatin Calcium (Atorvastatin Calcium) 40 Mg Tablet, 40 MG PO HS, TAB 08/19/24 Sevelamer Carbonate (Renvela) 0.8 Gram Powd.pack, 0.8 GM PO TIDMEALS 08/19/24 Tacrolimus (Astagraf Xl) 1 Mg Cap.er.24h, 1 CAP PO DAILY for 30 Days, #30 CAP 0 Refills 08/19/24 Prednisone (Prednisone) 5 Mg Tablet, 5 MG PO DAILY, TAB 08/19/24 Aspirin (Aspirin) 81 Mg Tab.chew, 81 MG PO DAILY, TAB.CHEW 08/19/24 Isosorbide Mononitrate (Isosorbide Mononitrate ER) 30 Mg Tab.er.24h, 30 MG PO DAILY, TAB 08/19/24 Lactulose (Lactulose) 10 Gram/15 Ml (15 Ml) Solution, 15 ML PO DAILY for constipation for 30 Days, #450 ML 0 Refills 08/19/24 Discontinued Reported Medications Insulin Degludec (Tresiba Flextouch U-100) 100 Unit/Ml (3 Ml) Insuln.pen, 55 UNIT SQ HS, SYRINGE 08/19/24 Metoprolol Succinate (Metoprolol Succinate) 100 Mg Tab.er.24h, 100 MG PO DAILY, TAB 08/19/24 Clopidogrel Bisulfate (Plavix) 75 Mg Tablet, 75 MG PO DAILY, TAB 08/19/24 Amlodipine Besylate (Amlodipine Besylate) 5 Mg Tablet, 5 MG PO DAILY, TAB 08/19/24 Tacrolimus (Astagraf Xl) 1 Mg Cap.er.24h, 1 CAP PO DAILY 08/19/24 Time spent arranging discharge: 31-60 minutes KAVON JACKMAN MD Dec 04, 2024 07:34
--- NOTE | 2024-12-04 08:19 | PN ---
NEPHROLOGY NOTE SUBJECTIVE: This patient has multiple problems, renal failure. The patient has underlying anemia. The patient has underlying severe bradycardia, requiring dopamine, hypotension before, end-stage renal disease, history of failed kidney transplant, thrombocytopenia, underlying liver cirrhosis and anemia. The patient has no other associated finding. All the other systemic review is unchanged. No other associated symptoms. The patient has undergone dialysis also. REVIEW OF SYSTEMS: CONSTITUTIONAL: With no fever, chills or rigors. HEENT: With no headache, oral ulcers, sore throat or difficulty swallowing. RESPIRATORY: With no cough, expectoration, hemoptysis or pleuritic pain. CARDIOVASCULAR: No orthopnea or PND. GASTROINTESTINAL: Negative for nausea, vomiting or diarrhea. GENITOURINARY: Negative for dysuria or hematuria. PHYSICAL EXAMINATION: GENERAL: Pale, no other distress. VITAL SIGNS: Blood pressure has been low up to 125/60, pulse 86, respiratory rate is 14, afebrile. HEENT: Head is atraumatic, normocephalic. Pupils are round and reactive. Sclerae are anicteric. Conjunctivae not pale. Oral mucosa is not dry. NECK: Without masses or bruits. Thyroid is palpable. Neck has no bruits. CHEST: Shows equal thoracic percussion, note being resonant in all areas. CARDIAC: Regular rhythm, no rub, no S3 or S4. No parasternal heave. BACK: No tenderness or back deformities. LABORATORY DATA: We have reviewed available labs in detail. Her sugars are fluctuating and the patient has a creatinine of 4.5. IMAGING STUDIES: Personally reviewed. Old records have been reviewed. PROBLEMS: Renal failure and anemia. The patient has underlying hypotension before, failed kidney transplant, end-stage renal disease, on dialysis, multiple other comorbidities. PLAN: Will be to continued monitoring of renal function. Continued monitoring of electrolytes. The patient remains on immunosuppression. Epogen as needed. Continued followup on sugars, electrolytes and overall status. Intake, output, weight and anemia will be monitored. Nonsteroidal drugs will be avoided. Doses of medicine will be adjusted. I have reviewed the ultrasound which has shown cirrhosis with some ascites, but no need for paracentesis for now. Echocardiogram results have been reviewed and have shown ejection fraction of 55%. The patient will need close followup on blood pressure and may need steroids if needed. Condition remained critical and guarded. Seen several times today. TID: [id number] RECEIPT: [id number]
== END 2024-12-03 15:32 | disposition home or self-care (01) | DRG 308 ==
LOC: EDH 16:45 → EDHIP 16:46 → 2BH 12-01 07:23 → 2DH 12-01 18:49
PROVIDERS: ADMIT Hospitalist; ATTEND Hospitalist
PROC: 5A1D70Z Performance of Urinary Filtration, Intermittent, Less than 6 Hours Per Day (ICD-10-PCS; principal; 2024-12-01)
PROC: 5A1D70Z Performance of Urinary Filtration, Intermittent, Less than 6 Hours Per Day (ICD-10-PCS; 2024-12-03)
DX: R00.1 Bradycardia, unspecified (principal); J96.00 Acute respiratory failure, unspecified whether with hypoxia or hypercapnia; N18.6 End stage renal disease; I12.0 Hypertensive chronic kidney disease with stage 5 chronic kidney disease or end stage renal disease; N17.9 Acute kidney failure, unspecified; R18.8 Other ascites; T86.12 Kidney transplant failure; I49.5 Sick sinus syndrome; D69.6 Thrombocytopenia, unspecified; D63.1 Anemia in chronic kidney disease; E11.22 Type 2 diabetes mellitus with diabetic chronic kidney disease; E78.00 Pure hypercholesterolemia, unspecified; E11.319 Type 2 diabetes mellitus with unspecified diabetic retinopathy without macular edema; E87.5 Hyperkalemia; I1A.0 Resistant hypertension; I25.10 Atherosclerotic heart disease of native coronary artery without angina pectoris; I35.1 Nonrheumatic aortic (valve) insufficiency; H54.61 Unqualified visual loss, right eye, normal vision left eye; I95.9 Hypotension, unspecified; Y83.0 Surgical operation with transplant of whole organ as the cause of abnormal reaction of the patient, or of later complication, without mention of misadventure at the time of the procedure; Z82.49 Family history of ischemic heart disease and other diseases of the circulatory system; Z83.3 Family history of diabetes mellitus; Z95.5 Presence of coronary angioplasty implant and graft; Z99.2 Dependence on renal dialysis
CPT/HCPCS: 36415; 71045; 71250; 76705; 80048; 80053; 82948; 83735; 84100; 84439; 84443; 84484; 85025; 85027; 85610; 85730; 86431; 86704; 86706; 87340; 87635; 87804; 90935; 93005; 93306; 94640; 94664; 96365; 96366; 96375; 99285; G0378; J0461; J1265; J1815; J7070; J7512